=== PATIENT | male | born 1980 | race Caucasian/White ===

== ENCOUNTER 2016-09-13 19:53 | Inpatient (IN) | payer MEDICARE, OTHER ==
--- NOTE | ~2016-09-13 | DS ---
Unit #: [id number] #: [id number] Patient: GENIE MONTERROSO [id number] [place] [id number] [facility]. [place], [place] [address] [id number] I MR#: [id number] NAME: GENIE MONTERROSO ROOM: 326 Age: 36 Sex: M Admission Date: 09/13/2016 : 1980 Discharge Date: 09/27/2016 Attending Physician: Julio Thomson M.D. Referring Physician: Danielito Nelson M.D. Primary Care Physician: Danielito Nelson M.D. DISCHARGE SUMMARY DISCHARGE DIAGNOSES 1. Acute hypoxic respiratory failure. 2. Methicillin-sensitive Staphylococcus aureus pneumonia. 3. History of pulmonary aspergillosis. 4. HIV. 5. Acute systolic heart failure. 6. Deep venous thrombosis. 7. Severe protein calorie malnutrition. 8. Rhabdomyolysis. HOSPITAL COURSE The patient is a 36-year-old HIV positive male who presented to [facility] emergency department with a complaint of shortness of breath. Apparently, he had been treated for flu several days prior but did not improve. In the emergency department, he was noted to be tachycardic and x-ray showed extensive left-sided pneumonia. Ultimately, the patient's respiratory status declined such that he needed intubation the day following admission. Blood cultures ultimately returned growing Staph aureus resistant only to penicillin. He sputum cultures returned growing the same. Chest x-ray was noted to have infectious or inflammatory cavitary abnormality in the left upper lobe. CT of the chest was performed and showed a large area of cavitation within the left upper lobe. The notion of repeat aspergillus was entertained briefly, however, aspergillus antigen was negative and it was felt that this was a cavitary pneumonia caused by the patient's Staph. The patient underwent 2D echo which revealed a reduced ejection fraction at 40% to 45%. The patient was started on beta anatoliy and lisinopril. The patient underwent bilateral upper extremity venous ultrasound secondary to swelling, right greater than left, and was noted to have an occlusive clot in the right internal jugular vein and nonocclusive clot in the right subclavian vein. The patient was started on Arixtra for management while in the hospital but has been switched to Eliquis as an outpatient and will likely need 3 months of therapy. The patient was ultimately able to be removed from the ventilator on 09/23/2016. He has improved rapidly since then. He is currently breathing without difficulty on room air. Given this the patient is being discharged home to complete two more weeks of IV antibiotics for his MSSA pneumonia. DISCHARGE MEDICATIONS 1. Intelence 200 mg p.o. b.i.d. Unit #: [id number] #: [id number] Patient: GENIE MONTERROSO 2. Celsentri 300 mg p.o. b.i.d. 3. Isentress 400 mg p.o. b.i.d. 4. Coreg 6.25 mg p.o. b.i.d. 5. Zestril 10 mg p.o. h.s. 6. Zithromax 1200 mg p.o. daily. 7. Florastor 250 mg p.o. b.i.d. 8. Bactrim DS one p.o. daily. 9. Rocephin 2 grams IV daily times 2 more weeks. 10. Eliquis 10 mg p.o. b.i.d. times 7 days; then, 5 mg p.o. b.i.d. 11. Ventolin two puffs q.4 h. p.r.n. FOLLOWUP 1. The patient should follow up with Dr. Noe in one week. 2. He should follow up at the [facility] at the soonest available appointment. Dictated by... Grace Harris/malka TD: 09/27/2016 20:42 JOB #: [id number] DISCHARGE SUMMARY Page 1 of 1 X Julio Thomson MD X DISCHARGE SUMMARY
--- NOTE | ~2016-09-13 | CR72 ---
[facility] A Service of [facility] RADIOLOGY TEXT RESULTS PATIENT: GENIE MONTREROSO [facility] : [birth year] UNIT #: [id number] AGE: [address]: Nam Chand MD SEX: M ORDER DR: [id number] [facility] [address] [facility]. [place], [place] [address] [id number] I MR#: [id number] Acc #: [id number] NAME: GENIE MONTERROSO : 1980 SEX: M STUDY DATE/TIME: 09/16/2016 3:47 UNIT: [facility] ROOM: [facility] STUDY DESCRIPTION: CR Chest Single View Portable Attending Physician: Nam Chand M.D. Referring Physician: Danielito Nelson M.D. Ordering Physician: Shaun Noe M.D. Primary Care Physician: Danielito Nelson M.D. MEDICAL IMAGING REPORT This report is preliminary unless electronic signature is present EXAM Frontal chest, 09/16/2016 INDICATIONS Respiratory failure, respiratory distress in a 36-year-old male, worsening symptoms today. TECHNIQUE Frontal chest compared 09/15/2016 FINDINGS Preexisting tubes and lines in satisfactory position to the extent visualized. Cardiac silhouette is stable. Moderately extensive interstitial and alveolar infiltrates bilaterally with the left-sided predominance are not significantly changed. Left lung base not fully included in the field of view. No pneumothorax. IMPRESSION No significant change from 09/15/2016. Dictated by... Silvio Werner M.D. THIS IS AN ELECTRONICALLY VERIFIED REPORT Silvio Werner M.D. at 09/16/2016 10:12 PM Rosa TD: 09/16/2016 15:19 JOB #: [id number] MEDICAL IMAGING REPORT [facility] A Service of [facility] RADIOLOGY TEXT RESULTS PATIENT: GENIE MONTERROSO [facility]: [facility] : 78 UNIT #: [id number] AGE: [address]: Nam Chand MD SEX: M ORDER DR: Page 1 of 1 COPY
--- NOTE | ~2016-09-13 | CR72 ---
[facility] A Service of [facility] RADIOLOGY TEXT RESULTS PATIENT: GENIE MONTERROSO LOCATION: [facility] : [birth year] UNIT #: [id number] AGE: [address]: Julio Thomson MD SEX: M ORDER DR: [id number] [facility]. [place], [place] [address] [id number] I MR#: [id number] Acc #: [id number] NAME: GENIE MONTERROSO : 1980 SEX: M STUDY DATE/TIME: 09/18/2016 6:08 UNIT: [facility] ROOM: [facility] STUDY DESCRIPTION: CR Chest Single View Portable Attending Physician: Julio Thomson M.D. Referring Physician: Danielito Nelson M.D. Ordering Physician: Shaun Noe M.D. Primary Care Physician: Danielito Nelson M.D. MEDICAL IMAGING REPORT This report is preliminary unless electronic signature is present EXAM AP radiograph chest, 09/18/2016. HISTORY Followup respiratory FX/ARDS. TECHNIQUE AP radiograph of the chest is presented. COMPARISON STUDIES 09/17/2016, 0441 hours. FINDINGS Endotracheal tube unchanged terminating approximately 5.4 cm above the corie. Enteric tube extends below diaphragm and off field of radiograph. Left internal jugular approach central venous catheter terminates in superior vena cava. Heart normal in size. Mediastinal contours within normal limits. The lungs are well inflated. Extensive bilateral airspace disease. Underlying pulmonary vascular congestion has decreased. Pulmonary vasculature appears within normal limits at this time. Decreased interstitial densities in the bilateral lungs. The distribution of bilateral airspace densities is unchanged. The cavitary lesion in the left upper lobe with internal densities is stable. Appearance of the lungs likely reflects combination of multifocal bilateral pneumonia and ARDS. Some improvement in interstitial component of process. No pneumothorax. No sizeable pleural effusion. Dictated by... Jan Aragon M.D. [facility] A Service [facility] RADIOLOGY TEXT RESULTS PATIENT: GENIE MONTERROSO LOCATION: [facility] : [birth year] UNIT #: [id number] AGE: [address]: Julio Thomson MD SEX: M ORDER DR: THIS IS AN ELECTRONICALLY VERIFIED REPORT Jan Aragon M.D. at 09/19/2016 6:04 PM Tierney TD: 09/18/2016 11:53 JOB #: [id number] MEDICAL IMAGING REPORT Page 1 of 1 COPY
--- NOTE | ~2016-09-13 | EKG ---
PATIENT: GENIE MONTERROSO UNIT #: [id number] Ventricular Rate: 149 BPM Atrial Rate: 149 BPM P-R Interval: 124 ms QRS Duration: 90 ms Q-T Interval: 264 ms QTC Calculation(Bezet): 415 ms P Trenton: 78 degrees Calculated R [place]on: 85 degrees Calculated T [place]on: 83 degrees Diagnosis Line: Sinus tachycardia Diagnosis Line: Otherwise normal ECG Diagnosis Line: When compared with ECG of 13-SEP-2016 17:30, Diagnosis Line: (unconfirmed) Diagnosis Line: No significant change was found Diagnosis Line: Confirmed by KIMBERLYN MOSER MD ([id number]) on 09/18/2016 Diagnosis Line: 10:36:06 PM INTERPRETING MD: EHSAN CUEVAS
--- NOTE | ~2016-09-13 | FU ---
[facility] Nutrition Therapy DATE: 09/18/16 Patient: GENIE MONTERROSO Physician: STEPHANIE Address: [address] [facility] Room/Bed: [address], Zip: [place] [id number] Admit Date: 09/13/16 Date of : [birth year] Height: 5 7 Weight: 168 76.4 NUTRITION MONITORING/FOLLOW-UP: Reason: Nutrition follow up Anthropometrics: Ht: 67" wt: 64.5 kg BMI: 22.3 Wt 09/18: 76.4 kg Labs: Gluc 170 BUN 56 Ca++ 8.0 Alb 1.8 Meds: Propofol at 12.4 mL/hr, versed, fentanyl, reglan, MgSO4, KCl, furosemide, solu-medrol, D5%, levophed, protonix, zofran, NaCl I&O's: 3596/5550, last BM 09/13 Skin: Reviewed, no changes noted. Edema: 1+ BL hands/ feet Estimated Nutrition Needs: 7763-3466 kcals (28-32 kcals/kg) 77-97 grams protein (1.2-1.5 grams/kg) Assessment: Chart reviewed, events noted. Pt remains intubated and sedated in the ICU. Propofol is providing an additional 327 kcals from lipids at this time. wrote to wean propofol per RN report. Pt is receiving enteral nutrition with Jevity 1.5 @ 20 mL/hr without Prostat. Per RN report, Prostat has not been on the MAR since she started caring for the pt. Pt had residuals of ~110 cc last night, and ~200cc this AM. Reglan was started yesterday. Please note, the pt has not had a noted BM since 09/13 (x 5 days). Per pump history, the pt has received ~53% goal volume of enteral nutrition over the past 24 hrs (based on previous recommended goal rate). Dx: Inadequate protein-energy intake RT clinical condition AEB intubated, ~53% goal volume of enteral nutrition received over the past 24 hrs- ACTIVE Intervention: 1. Enteral nutrition Monitoring, Evaluation and Goals: NOT BEING MET 1. Enteral nutrition; provide >80% goal volume x 24 hrs 2. Labs; WNL 3. Weight; prevent unintentional weight loss, promote gradual weight gain towards IBW 4. Skin; prevent breakdown [facility] Nutrition Therapy DATE: 09/18/16 Patient: GENIE MONTERROSO Physician: STEPHANIE Address: [address] [facility] Room/Bed: [address], Zip: [place] [address] Admit Date: 09/13/16 Date of : [birth year] Height: 5 7 Weight: 168 76.4 Recommendations: 1. While the pt remains on propofol @ 12.4 mL/hr, increase Jevity 1.5 by 10 mL q 6 hrs as tolerated to goal of 40 mL/hr + 30 mL Prostat BID to provide: 1967 kcals/ 91 grams protein/ 730 mL free H20 2. When the pt is no longer receiving propofol, increase Jevity 1.5 to 55 mL/hr and discontinue Prostat. This will provide: 1980 kcals/ 84 grams protein/ 1003 mL free H20 3. Optimize the pt's bowel regimen, as he has not had a noted BM since 09/13. Status: Pt is at moderate-severe nutritional risk. RD will continue to follow. Respectfully, MANUEL LAWRENCE RD, LD Food and Nutritional Services [facility] cc: client file
--- NOTE | ~2016-09-13 | CR72 ---
[facility] A Service of [facility] RADIOLOGY TEXT RESULTS PATIENT: GENIE MONTERROSO LOCATION: [facility] : 76 UNIT #: [id number] AGE: [address]: Nam Chand MD SEX: M ORDER DR: [id number] [facility] [address]. [place], [place] [address] [id number] I MR#: [id number] Acc #: [id number] NAME: GENIE MONTERROSO : 1980 SEX: M STUDY DATE/TIME: 09/13/2016 18:29 UNIT: [facility] ROOM: [facility] STUDY DESCRIPTION: CR Chest Single View Portable Attending Physician: Yajaira Cannon M.D. Referring Physician: Danielito Nelson M.D. Ordering Physician: Lori Mays M.D. Primary Care Physician: Danielito Nelson M.D. MEDICAL IMAGING REPORT This report is preliminary unless electronic signature is present EXAM AP portable chest, 09/13/2016 COMPARISON 12/02/2015 HISTORY SUPPLIED Shortness of breath and chest pressure for 4 days. FINDINGS An AP portable view of the chest is obtained. Heart size is normal. Patient has developed diffuse severe infiltrates throughout the left lung and some patchy infiltrate in the right lung base. No pleural fluid is identified. The infiltrates appear somewhat nodular in character. CONCLUSION Interim development of extensive infiltrate in the left lung and some nodular-appearing infiltrate in the right base. Findings are consistent with pneumonia. Dictated by... Jan Blake M.D. THIS IS AN ELECTRONICALLY VERIFIED REPORT Jan Blake M.D. at 09/14/2016 10:35 AM LUIGI/april TD: 09/14/2016 01:57 JOB #: [id number] MEDICAL IMAGING REPORT [facility] A Service [facility] RADIOLOGY TEXT RESULTS PATIENT: GENIE MONTERROSO LOCATION: [facility] : 76 UNIT #: [id number] AGE: [address]: Nam Chand MD SEX: M ORDER DR: Page 1 of 1 COPY
--- NOTE | ~2016-09-13 | CO ---
Unit #: [id number] #: [id number] Patient: LOWELL MONTERROSO [address] [place], [place] [address] [id number] I MR#: [id number] NAME: LOWELL MONTERROSO ROOM: [facility] Age: 36 Sex: M Admission Date: 09/13/2016 : 1980 Attending Physician: Julio Thomson M.D. Primary Care Physician: Danielito Nelson M.D. Consultation Date: 09/15/2016 CONSULTATION REPORT REASON FOR CONSULTATION Thrombocytopenia. HISTORY OF PRESENT ILLNESS Mr. Lowell Monterroso is a 36-year-old with a history of AIDS, admitted with sepsis and acute renal failure. Blood cultures are growing Staph aureus with sensitivities pending and he is currently on broad-spectrum antibiotics. Historical information was obtained from the chart as the patient is currently intubated on the vent and only a friend is present at the bedside. From his CD4 count, it appears that he has not been taking his antiretrovirals. He was admitted in the hospital with cough, shortness of breathing, arthralgias and myalgias and was initially treated with Tamiflu for influenza. In the emergency room, he was tachycardic with extensive left-sided pneumonia. He is currently on broad-spectrum antibiotics. CBC at the time of admission showed a white count of 2500, hemoglobin of 14.7, platelet count of 45,000, dropping to 30,000 leading to this consultation. The pro time is 10.5, INR is 1. PTT is 37.9 without any evidence of bleeding. PAST MEDICAL HISTORY Burkitt lymphoma, treated in 2011. HIV diagnosed in 2004. Current CD4 count is 27. History of Aspergillus pneumonia. ALLERGIES Listed as penicillin. FAMILY HISTORY Apparently has Crohn disease. SOCIAL HISTORY Not available. Quit smoking apparently a year ago according to his friend at bedside. His partner has been incarcerated. REVIEW OF SYSTEMS Not obtainable. PHYSICAL EXAMINATION GENERAL: He is a middle-aged man, intubated on a ventilator. VITAL SIGNS: Temperature 99.7, pulse is 108, respiratory rate is 28, blood pressure 105/61, O2 saturation 94% on ventilator. HEENT: Shows pupils are equal and reactive well. Mild pallor. No icterus. Mucous membranes are moist. ET tube is noted. NECK: Without adenopathy, JVD, or thyromegaly. CARDIOVASCULAR: First and second heart sounds are heard and regular. Unit #: [id number] #: [id number] Patient: LOWELL MONTERROSO LUNGS: Bilaterally equal air entry. Coarse breath sounds. ABDOMEN: Soft and nontender. Liver and spleen are not palpable. EXTREMITIES: Warm with good pulses. No edema, cyanosis or clubbing. NEUROLOGIC: He is intubated and sedated. SKIN: Negative. ALLERGIC/LYMPHATIC: Negative. DIAGNOSTIC STUDIES LABORATORY RESULTS: CBC with a white count of 2.5, hemoglobin 14.7, platelet count is 30,000. Pro time as mentioned. Complete metabolic panel shows a BUN of 21, creatinine is 0.7, AST is 134, ALT is 98, alkaline phosphatase 90, bilirubin is 2.7, albumin 2.2. ASSESSMENT AND PLAN Mr. Lowell Monterroso is a 36-year-old with a history of AIDS, admitted with pneumonia, sepsis, acute respiratory failure and severe thrombocytopenia. Blood cultures grew Staph aureus, possibly methicillin-resistant Staph aureus and sensitivities are not available at this point and he is on broad-spectrum antibiotics to cover this. Thrombocytopenia is most probably related to his sepsis. Anemia has been based on thrombocytopenia related to his prior treatment of Burkitt lymphoma in 2011. I discussed with his friend who is at bedside. RECOMMENDATIONS 1. CBC with transfusion support as necessary. 2. May need to repeat his coagulation studies for evidence of DIC. Thank you for allowing me to participate in his care. Dictated by... Mahad Mancilla M.D. MALIKA/oneil TD: 09/16/2016 23:20 JOB #: [id number] CONSULTATION REPORT Page 1 of 1 X Mahad Mancilla MD X CONSULTATION REPORT
--- NOTE | ~2016-09-13 | CR7 ---
[facility] A Service of [facility] RADIOLOGY TEXT RESULTS PATIENT: GENIE MONTERROSO [address]ATION: [address] : [birth year] UNIT #: [id number] AGE: [address]: Nam Chand MD SEX: M ORDER DR: [id number] [facility] [address] [place], [place] [address] [id number] I MR#: [id number] Acc #: [id number] NAME: GENIE MONTERROSO : 1980 SEX: M STUDY DATE/TIME: 09/14/2016 11:41 UNIT: [facility] ROOM: [facility] STUDY DESCRIPTION: CR Abdomen Single AP View Attending Physician: Nam Chand M.D. Referring Physician: Danielito Nelson M.D. Ordering Physician: Nam Chand M.D. Primary Care Physician: Danielito Nelson M.D. MEDICAL IMAGING REPORT This report is preliminary unless electronic signature is present EXAM KUB HISTORY Dobbhoff tube placement. TECHNIQUE Single view of the abdomen was obtained. FINDINGS The Dobbhoff tube is seen with the tip in good position near the pylorus, either the duodenal bulb or distal stomach. The bowel gas pattern is normal. STAT * RESULT Dictated by... Esteban Moncada M.D. THIS IS AN ELECTRONICALLY VERIFIED REPORT Esteban Moncada M.D. at 09/14/2016 3:43 PM PARISH/doretha TD: 09/14/2016 12:04 JOB #: [id number] MEDICAL IMAGING REPORT Page 1 of 1 COPY
--- NOTE | ~2016-09-13 | A ---
[facility] Nutrition Therapy DATE: 09/14/16 Patient: GENIE MONTERROSO Physician: STEPHANIE Address: [address] [place] [address] Room/Bed: [address], Zip: [place] [address] Admit Date: 09/13/16 Date of : [birth year] Height: 5 7 Weight: 142 64.5 NUTRITIONAL ASSESSMENT: REASON: Enteral nutrition recommendations 36 yo male admitted for PNA, HIV PMH: HIV, Burkitts lymphoma, s/p left upper lobectomy Anthropometrics: Ht: 67" wt: 64.5 kg BMI: 22.3 IBW: 67.3 kg, 96% IBW Labs: Na+ 130 K+ 3.2 Cl- 98 Gluc 156 Ca++ 7.4 Alb 2.2 AST 174 ALT 98 Meds: Propofol @ 36 ml/hr, D5%, zofran, levaquin (IV), pepcid I/O & Bowel function: 2957/700, last BM 09/13 Skin Integrity: Old surgical scar left posterior chest Preventative Mepiplex to coccyx Edema: None noted Estimated Nutrition Needs: 4960-1774 kcals (28-32 kcals/kg) 77-97 grams protein (1.2-1.5 grams/kg) Assessment: Chart reviewed, events noted. Pt is being intubated in the ICU at this time. Pt is sedated with propofol, which is providing an additional 950 kcals from lipids at this time. Pt has a h/o HIV and Burkitt's lymphoma. RN requested enteral nutrition recommendations now that the pt is being intubated, and DHT has been placed. Pt was previously on clear liquid diet. Per previous weights in [employer], the pt's weight have remained stable since September 2015. Please see recommendations below. Dx: Inadequate protein-energy intake RT clinical condition AEB intubated, NPO status. Intervention: 1. Enteral nutrition Monitoring, Evaluation and Goals: 1. Enteral nutrition; provide >80% goal volume x 24 hrs 2. Labs; WNL: electrolytes, glucose, AST, ALT 3. Weight; prevent unintentional weight loss, promote gradual weight gain towards IBW 4. Skin; prevent breakdown [facility] Nutrition Therapy DATE: 09/14/16 Patient: GENIE MONTERROSO Physician: STEPHANIE Address: [address] Room/Bed: [address], Zip: [place] [address] Admit Date: 09/13/16 Date of : [birth year] Height: 5 7 Weight: 142 64.5 Recommendations: 1. Once medically feasible, would initiate enteral nutrition with Jevity 1.5 @ 20 mL/hr. Increase by 10 mL q 6 hrs as tolerated to indicated goal rate below: WHILE THE PT IS RECEIVING PROPOFOL: -Increase Jevity 1.5 to 25 mL/hr + 30 mL Prostat TID to provide: 2150 kcals/ 83 grams protein/ 456 mL free H20 WHEN THE PT IS NO LONGER RECEIVING PROPOFOL: -Discontinue Prostat -Increase Jevity 1.5 to 55 mL/hr to provide: 1980 kcals/ 84 grams protein/ 1003 mL free H20 2. If the pt is extubated, recommend diet advancement per [employer] recommendations without any further dietary restrictions. Pt is at moderate-severe nutritional risk. Respectfully, MANUEL LAWRENCE RD, LD Food and Nutritional Services [facility] cc: client file
--- NOTE | ~2016-09-13 | HP ---
Unit #: [id number] #: [id number] Patient: GENIE MONTERROSO [id number] [address] [place], [place] [address] [id number] E MR#: [id number] NAME: GENIE MONTERROSO ROOM: Age: 36 Sex: M Admission Date: 09/13/2016 : 1980 Attending Physician: Lori Mays M.D. Referring Physician: Danielito Nelson M.D. Primary Care Physician: Danielito Nelson M.D. HISTORY AND PHYSICAL CHIEF COMPLAINT HIV, pneumonia, rhabdomyolysis. HISTORY OF PRESENT ILLNESS This 36-year-old male with HIV and previous treatment for Burkitt's lymphoma is admitted for pneumonia. The patient states that he was well until the past several days when he developed a deep cough productive of green sputum with increasing shortness of breath and myalgias. He was diagnosed with influenza and started on Tamiflu three days ago. He has become more ill despite Tamiflu. He presented to this emergency department where he is quite tachycardic with a heart rate of 158. His chest x-ray shows extensive left-sided pneumonia. In the ER, he was bolused with two liters of saline, given Rocephin, Zithromax, morphine, and Zofran, and currently is being IV Bactrim. He was last admitted to this facility September 2015 for cavitary pneumonia requiring left lobectomy with positive cultures for aspergillus. He states that he has not been hospitalized since that time nor recently taken any antibiotics. Labs are also notable for acute hypoxic respiratory failure, elevated LFTs, and rhabdomyolysis with a CPK of 19,000. PAST MEDICAL HISTORY 1. Human immunodeficiency virus diagnosed in 2004. Last CD4 count last year was 306 at this facility. Viral load 18,000. The patient currently is receiving HAART therapy through the [facility]. 2. 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 Patient ultimately required left upper lobectomy by Dr. Lockhart. 3. History of Burkitt's lymphoma with previous chemotherapy in 2011. ALLERGIES PENICILLIN. HOME MEDICATIONS 1. Selzentry 600 mg b.i.d. 2. Intelence 200 mg b.i.d. 3. Isentress 400 mg b.i.d. 4. Symbicort. FAMILY HISTORY Crohn disease. SOCIAL HISTORY The patient lives with his partner. He stopped smoking last year. He Unit #: [id number] #: [id number] Patient: GENIE MONTERROSO does not drink alcohol. REVIEW OF SYSTEMS Notable for shortness of breath, myalgias, productive cough, HIV, left upper lobe lobectomy, and Burkitt's lymphoma. All other systems were reviewed and are otherwise negative. PHYSICAL EXAMINATION GENERAL: A pleasant, ill-appearing, 36-year-old male. VITAL SIGNS: Temperature 97.8 and pulse 158, now down to 136. Initial O2 saturation was 94% on room air; however, when I went to see the patient, his O2 saturation was 86% on 6 liters of oxygen. Respirations 24 and blood pressure 127/70. HEENT: Eyes PERRLA. Extraocular muscles are intact. Pharynx is benign. NECK: Supple without adenopathy or thyromegaly. CHEST: Rhonchi throughout, particularly on the left. CARDIAC: Tachy S1 and S2, without murmur. ABDOMEN: Bowel sounds are present. No hepatosplenomegaly, tenderness, or masses. EXTREMITIES: Without clubbing, cyanosis, or edema. Pedal pulses are present. No splinter hemorrhages noted over the fingernail beds. LYMPHATICS: No cervical, supraclavicular, or axillary lymphadenopathy. NEUROLOGIC: Patient is awake, alert, and oriented. Cranial nerves are intact. Equal strength throughout. DIAGNOSTIC STUDIES ADMISSION LABORATORY: Hematocrit is 41.8, white blood count is 2.5, and platelet count is 45,000. Ten bands noted. PTT is 35.5 and INR is normal. SMA-12 with glucose of 180, BUN 32, sodium 126, potassium 3.4, chloride 86, albumin 3.3, bilirubin 3.3, AST 360, ALT 144, and alkaline phosphatase 99. LDH 979. CPK is 19,500. Lactic acid 2.2. ABG with pH of 7.47, PCO2 of 35, PO2 of 72, and O2 saturation is 94% on 6 liters of oxygen. IMAGING: Chest x-ray shows extensive left-sided infiltrate and probably infiltrate at the right base consistent with pneumonia. CARDIOLOGY: EKG shows sinus tachycardia, rate 152, and nonspecific ST wave abnormalities. ASSESSMENT 1. Pneumonia in this patient with human immunodeficiency virus. This is associated with acute hypoxic respiratory failure. He was recently diagnosed with influenza. 2. Rhabdomyolysis. 3. Hypovolemic hyponatremia. 4. Human immunodeficiency virus with last CD4 count of 306 last year and elevated viral load on highly active antiretroviral therapy. 5. Status post left lobectomy for aspergillus. 6. Sinus tachycardia. 7. Increased liver function tests. 8. Previous treatment for Burkitt's lymphoma. 9. Neutropenia and thrombocytopenia. PLANS 1. IV vancomycin, IV Bactrim, and IV Levaquin pending cultures and continue Tamiflu. 2. Aggressive IV fluids. Unit #: [id number] #: [id number] Patient: GENIE MONTERROSO 3. Supplemental oxygen and bronchodilators. 4. Infectious Disease and Pulmonary consultations. 5. Blood and sputum cultures. 6. DVT and gastritis prophylaxis. 7. Florastor. 8. CT scan of the abdomen. Critical care time spent on this patient was 40 minutes. Dictated by Grace Silverio/funmilayo TD: 09/13/2016 21:33 JOB #: [id number] HISTORY AND PHYSICAL Page 1 of 1 X Yajaira Cannon MD X HISTORY AND PHYSICAL
--- NOTE | ~2016-09-13 | CR72 ---
[facility] A Service of [facility] RADIOLOGY TEXT RESULTS PATIENT: GENIE MONTERROSO LOCATION: A 326-01 : [birth year] UNIT #: [id number] AGE: [address]: Julio Thomson MD SEX: M ORDER DR: [id number] [facility] [address] [place], [place] [address] [id number] I MR#: [id number] Acc #: [id number] NAME: GENIE MONTERROSO : 1980 SEX: M STUDY DATE/TIME: 09/23/2016 5:12 UNIT: [facility] ROOM: [facility] STUDY DESCRIPTION: CR Chest Single View Portable Attending Physician: Julio Thomson M.D. Referring Physician: Danielito Nelson M.D. Ordering Physician: Shaun Noe M.D. Primary Care Physician: Danielito Nelson M.D. MEDICAL IMAGING REPORT This report is preliminary unless electronic signature is present EXAM Portable chest, 09/23/2016 HISTORY Pneumonia and respiratory failure for 8 days. COMPARISON Chest, 09/22/2016 FINDINGS Frontal chest demonstrates removal of the endotracheal tube and enteric feeding tube. Left IJ central venous catheter is stable. No visible pneumothorax. Redemonstration of cavitary mass in the upper left lung field. Right lung clear. Heart size and mediastinum are stable. IMPRESSION 1. Removal of endotracheal tube and enteric feeding tube. Left IJ central venous catheter stable. No visible pneumothorax. 2. Stable cavitary mass in the left upper lung field. Dictated by... Daniel Gutierrez M.D. THIS IS AN ELECTRONICALLY VERIFIED REPORT Daniel Gutierrez M.D. at 09/23/2016 11:29 PM Sierra TD: 09/23/2016 16:01 JOB #: [id number] MEDICAL IMAGING REPORT Page 1 of 1 COPY
--- NOTE | ~2016-09-13 | XA166 ---
[facility] A Service of [facility] RADIOLOGY TEXT RESULTS PATIENT: GENIE MONTERROSO LOCATION: C3A 326- : [birth year] UNIT #: [id number] AGE: [address]: Julio Thomson MD SEX: M ORDER DR: [id number] [place] [id number] [facility] [place] [facility]. [place], [place] [address] [id number] I MR#: [id number] Acc #: [id number] NAME: GENIE MONTERROSO : 1980 SEX: M STUDY DATE/TIME: 09/27/2016 13:53 UNIT: C3A PCU ROOM: [facility] STUDY DESCRIPTION: XA PICC Line Placement WO Port Attending Physician: Julio Thomson M.D. Referring Physician: Danielito Nelson M.D. Ordering Physician: Physician Non-Staff Primary Care Physician: Danielito Nelson M.D. MEDICAL IMAGING REPORT This report is preliminary unless electronic signature is present EXAM PICC line insertion 09/27/2016 HISTORY IV access PRE-PROCEDURE The procedure was explained to the patient and/or patient pharmacy sales representative including risks, benefits, potential complications and potential for alternative forms of treatment. Informed consent was obtained, and prior to initiating the procedure a formal timeout procedure was performed. PROCEDURE Using full standard sterile barrier technique, including caps, gowns, gloves, masks, as well as sterile skin preparation and standard sterile draping, the left arm was prepped and draped in the usual fashion, and real-time sterile ultrasound guidance was used to localize an arm vein and to confirm vessel patency. A hard copy ultrasound image was recorded. After local anesthesia with 1% Xylocaine, the vein was punctured using real-time sterile ultrasound guidance, and an 0.018 guidewire was advanced into the superior vena cava, using fluoroscopic guidance. A 4-Paraguayan 40 cm single-lumen PICC was then measured and deployed with the tip positioned in the superior vena cava. The position of the line was documented with a radiographic image. The line was secured in place with an adhesive dressing and an antibiotic patch was applied. The left basilic vein was utilized. Total fluoro time was 0.1 minutes. Reference air kerma 1 mGy. IMPRESSION Successful placement of a 4-Paraguayan single-lumen PowerPICC via the left arm under ultrasound and fluoroscopic guidance. The tip of the PICC is in STS. [facility] A Service of [facility] RADIOLOGY TEXT RESULTS PATIENT: GENIE MONTERROSO LOCATION: A 326-01 : [birth year] UNIT #: [id number] AGE: [address]: Julio Thomson MD SEX: M ORDER DR: good position in the superior vena cava. Dictated by... Liam Fang M.D. THIS IS AN ELECTRONICALLY VERIFIED REPORT Liam Fang M.D. at 09/28/2016 8:59 AM Sher TD: 09/27/2016 17:25 JOB #: [id number] MEDICAL IMAGING REPORT Page 1 of 1 COPY
--- NOTE | ~2016-09-13 | CR72 ---
[facility] A Service of [facility] RADIOLOGY TEXT RESULTS PATIENT: GENIE MONTERROSO LOCATION: A 326-01 : [birth year] UNIT #: [id number] AGE: [address]: Julio Thomson MD SEX: M ORDER DR: [id number] [facility] [address]. [place], [place] [address] [id number] I MR#: [id number] Acc #: [id number] NAME: GENIE MONTERROSO : 1980 SEX: M STUDY DATE/TIME: 09/22/2016 4:58 UNIT: [facility] ROOM: [facility] STUDY DESCRIPTION: CR Chest Single View Portable Attending Physician: Julio Thomson M.D. Referring Physician: Danielito Nelson M.D. Ordering Physician: Shaun oNe M.D. Primary Care Physician: Danielito Nelson M.D. MEDICAL IMAGING REPORT This report is preliminary unless electronic signature is present EXAM Frontal chest, 09/22/2016 INDICATION Acute respiratory failure. Left-sided pneumonia. Lymphoma. TECHNIQUE Frontal chest was performed. COMPARISON 09/21/2016 FINDINGS ET tube tip in good position above the corie. Left-sided central line unchanged. There is an enteric tube present and the tip is below the diaphragm but not in the field of view. Cardiac silhouette stable. Vascularity unremarkable. Redemonstration of a cavitary mass in the upper lung zone on the left. This is not significantly changed. Faint interstitial opacities in the right lower lung zone are stable. There is no new effusion or pneumothorax. Previously-described additional potential cavitary lesion in the ysc-ud-fzyev lung zone on the left not clearly demonstrated on this study. IMPRESSION 1. Tubes and lines in satisfactory position. No pneumothorax. 2. Cavitary mass in the left lung not significantly changed. Opacities in the right lung not significantly changed. Dictated by... Silvio Werner M.D. THIS IS AN ELECTRONICALLY VERIFIED REPORT Silvio Werner M.D. at 09/25/2016 9:13 AM STS. [facility] A Service of [facility] RADIOLOGY TEXT RESULTS PATIENT: GENIE MONTERROSO LOCATION: [facility] 326-01 : [birth year] UNIT #: [id number] AGE: [address]: Juloi Thomson MD SEX: M ORDER DR: GAYATHRI/yolande TD: 09/22/2016 09:11 JOB #: [id number] MEDICAL IMAGING REPORT Page 1 of 1 COPY
--- NOTE | ~2016-09-13 | CR72 ---
[facility] A Service [facility] RADIOLOGY TEXT RESULTS PATIENT: GENIE MONTERROSO LOCATION: [address]21 : [birth year] UNIT #: [id number] AGE: [address]: Julio Thomson MD SEX: M ORDER DR: [id number] [place] [id number] [facility] [place] [facility]. [place], [place] [address] [id number] I MR#: [id number] Acc #: [id number] NAME: GENIE MONTERROSO : 1980 SEX: M STUDY DATE/TIME: 09/19/2016 9:09 UNIT: [facility] ROOM: [facility] STUDY DESCRIPTION: CR Chest Single View Portable Attending Physician: Julio Thomson M.D. Referring Physician: Danielito Nelson M.D. Ordering Physician: Shaun Noe M.D. Primary Care Physician: Danielito Nelson M.D. MEDICAL IMAGING REPORT This report is preliminary unless electronic signature is present EXAM Portable chest INDICATIONS Endotracheal tube placement respiratory failure and pneumonia. Reposition of endotracheal tube 09/19. COMPARISON Earlier the same day. FINDINGS A portable view of the chest is obtained. The endotracheal tube tip is 3 cm above the corie. This central venous catheter tip is in the superior vena cava and the Dobbhoff tube tip is at least in the stomach. Faint right lower lobe infiltrate and patchy cavitary left upper lobe infiltrate is present. It is unchanged from the prior study. IMPRESSION There is no significant change from the earlier exam from 5 hours ago. Apparently the endotracheal tube has been repositioned and it is in good position with its tip 3 cm above the corie. Dictated by... Joaquim Thurman M.D. THIS IS AN ELECTRONICALLY VERIFIED REPORT Joaquim Thurman M.D. at 09/19/2016 1:29 PM SYLVAIN/rnr TD: 09/19/2016 12:33 JOB #: [id number] MEDICAL IMAGING REPORT [facility] A Service [facility] RADIOLOGY TEXT RESULTS PATIENT: GENIE MONTERROSO LOCATION: [facility] CICCU3-21 : [birth year] UNIT #: [id number] AGE: [address]: Julio Thomson MD SEX: M ORDER DR: Page 1 of 1 COPY
--- NOTE | ~2016-09-13 | CT4 ---
[facility] A Service of [facility] RADIOLOGY TEXT RESULTS PATIENT: GENIE MONTERROSO LOCATION: [address]21 : [birth year] UNIT #: [id number] AGE: [address]: Nam Chand MD SEX: M ORDER DR: [id number] [facility] [address] [place], [place] [address] [id number] I MR#: [id number] Acc #: [id number] NAME: GENIE MONTERROSO : 1980 SEX: M STUDY DATE/TIME: 09/14/2016 4:24 UNIT: [facility] ROOM: [facility] STUDY DESCRIPTION: CT Abd and Pelv Wo Cont Attending Physician: Nam Chand M.D. Referring Physician: Danielito Nelson M.D. Ordering Physician: Yajaira Cannon M.D. Primary Care Physician: Danielito Nelson M.D. MEDICAL IMAGING REPORT This report is preliminary unless electronic signature is present EXAM CT abdomen and pelvis, noncontrast, 09/14/2016 HISTORY 36-year-old male with history of HIV and Burkitt lymphoma admitted to the hospital complaining of shortness of air and hemoptysis. Upper abdominal pain. 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 TECHNIQUE CT examination of the abdomen and pelvis was performed without oral or IV contrast. This CT exam was performed with one or more of the following radiation dose reduction techniques: automatic exposure control, adjustment of mA and/or kV according to patient size, and iterative reconstruction. FINDINGS LOWER CHEST: Dense airspace consolidation throughout the visualized left lower lung. Multinodular airspace opacities scattered throughout the remaining portions of both lower lungs. Given the history, atypical infection should be excluded. ABDOMEN: Liver, pancreas and spleen are normal in size and appearance without contrast. Contracted gallbladder. No bile duct dilatation. Tiny nonobstructing calculus in the right mid kidney. Both kidneys are otherwise negative. No mass or adenopathy is seen within the abdomen, retroperitoneum or pelvis. Small bowel and colon are normal in caliber and appearance, as imaged. The appendix is normal. PELVIS: Bladder, prostate and rectum are within normal limits. IMPRESSION [facility]. [facility] A Service of [facility] RADIOLOGY TEXT RESULTS PATIENT: GENIE MONTERROSO LOCATION: CICCU3 CICCU3-21 : [birth year] UNIT #: [id number] AGE: [address]: Nam Chand MD SEX: M ORDER DR: 1. Lung base images showing dense airspace consolidation throughout the left lower lung and patchy, multinodular airspace opacities scattered throughout the remaining portions of the visualized lower lungs. Given the patient's history, atypical infection should be excluded. 2. No acute abnormality within the abdomen or pelvis. 3. Tiny nonobstructing calculus right mid kidney. 4. No adenopathy within the abdomen or pelvis. The spleen is not enlarged. Dictated by... Eugene Osborn M.D. THIS IS AN ELECTRONICALLY VERIFIED REPORT Eugene Osborn M.D. at 09/14/2016 9:54 PM Archana TD: 09/14/2016 08:10 JOB #: [id number] MEDICAL IMAGING REPORT Page 1 of 1 COPY
--- NOTE | ~2016-09-13 | CO ---
Unit #: [id number] #: [id number] Patient: GENIE MONTERROSO [id number] [address] [place], [place] [address] [id number] I MR#: [id number] NAME: GENIE MONTERROSO ROOM: [facility]ICCU3 Age: 36 Sex: M Admission Date: 09/13/2016 : 1980 Attending Physician: Nam Chand M.D. Primary Care Physician: Danielito Nelosn M.D. Consultation Date: 09/14/2016 CONSULTATION REPORT REASON FOR CONSULTATION Antibiotic management in an HIV positive male. 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 The patient reports that he was recently diagnosed with influenza and started on Tamiflu 3 days prior to admission. The patient continued to feel poorly and started to have green sputum production. The patient was admitted and was found to be hypoxic, as well as having an elevated LDH and CK total. The patient's white blood cell counts were also low. Chest x-ray was consistent with infiltrates. The patient was given Levaquin, Tamiflu and Bactrim, and ID was asked to evaluate. PAST MEDICAL HISTORY 1. HIV with unknown current CD4 count; his last was 306, but that was approximately a year ago with viral load of 18,000. The patient says he goes to the [facility] and does receive antiretroviral therapy. 2. Cavitary pneumonia with Aspergillus status post left upper lobectomy. 3. History of Burkitt lymphoma with chemotherapy in 2011. ALLERGIES Penicillin. MEDICATIONS Antiretroviral therapy is on hold. The patient is currently on Bactrim, Tamiflu and Levaquin. For other medications, please refer to the patient's MAR. SOCIAL HISTORY The patient lives with his partner. This is how he reports he contracted the disease, which was in 2004, I believe. He has no current tobacco abuse. He has no drug abuse or alcohol abuse. REVIEW OF SYSTEMS The patient continues to complain of subjective fever, shortness of breath. No chest pain. No muscle pain. No diarrhea. Some occasional nausea and vomiting. No nonhealing wounds and no UTI signs or symptoms. PHYSICAL EXAMINATION VITAL SIGNS: Temperature is 98, pulse 104, blood pressure 135/80, respiratory rate 24. GENERAL: This is a male in no apparent distress who is resting in the bed. He has somewhat labored breathing and was just placed on high-flow Unit #: [id number] #: [id number] Patient: GENIE MONTERROSO oxygen. HEENT: His pupils are equal. NECK: His neck is supple. He does have a hoarse voice. CARDIOVASCULAR: S1, S2. Regular rate and rhythm. PULMONARY: Coarse and scattered rhonchi noted. ABDOMEN: Positive bowel sounds. Soft and nontender. EXTREMITIES: No clubbing, cyanosis or edema. DIAGNOSTIC STUDIES LABS: ABG on 6 liters of oxygen show a PaO2 of 72. BUN 21, creatinine 0.7, sodium 130, potassium 3.2, chloride 98, CO2 24, bilirubin 2.7, AST 174, ALT 98. LDH 979. CK total of 7,926, which is improved from 19,511. Lactic acid 1.5. Hemoglobin is 13.4, hematocrit 38.6, WBC 2.3, platelets 40. Urinalysis is unremarkable. Blood culture and sputum culture are currently pending. 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 The patient was recently diagnosed with influenza, started on Tamiflu, continued to feel poorly with shortness of air, green sputum production and found to have hypoxia and suspected rhabdomyolysis. At this time, the patient remains pancytopenic. There is a strong concern for Staphylococcus pneumonia with influenza and would like to continue therapy with vancomycin, as well as PCP coverage. Will continue Bactrim at this time, Tamiflu and also add Rocephin. The patient does have a history of Aspergillus pneumonia but is status post lobectomy but will repeat a galactomannan and also discuss with Dr. Jerry Longoria if any antifungal is warranted. Will check a serum cryptococcal antigen, as well. Will request that the patient needs a bronchoscopy, and this was discussed with the thread roller. Will check a CD4 and CD8, as well as an HIV viral load. Will continue to hold antiretroviral therapy secondary to increasing CK total and discuss with Dr. Jerry Longoria. Will check routine labs in the morning, including a CBC and CMP. Further recommendations to follow pending the patient's clinical course. Thank you for allowing us to participate in the care of this patient. Dictated by... Luis MartPTimothyRTimothyNTimothy for Grace Ramos/benson TD: 09/14/2016 11:15 JOB #: [id number] CONSULTATION REPORT Page 1 of 1 X X CONSULTATION REPORT
--- NOTE | ~2016-09-13 | CO ---
Unit #: [id number] #: [id number] Patient: GENIE MONTERROSO [id number] [address] [address] [id number] I MR#: [id number] NAME: GENIE MONTERROSO ROOM: [facility]CU3 Age: 36 Sex: M Admission Date: 09/13/2016 : 1980 Attending Physician: Julio Thomson M.D. Primary Care Physician: Danielito Nelson M.D. Consultation Date: 09/19/2016 CONSULTATION REPORT REASON FOR CONSULT Low ejection fraction and ALEX. HISTORY OF PRESENT ILLNESS This is a 36-year-old white male new to our group with a past medical history of Burkitt lymphoma status post chemotherapy reportedly in 2011. Patient was diagnosed with HIV reportedly in 2004 and medical course has been complicated with Aspergillus pneumonia status post left lobectomy. There is no history of hypertension, hyperlipidemia, diabetes mellitus, myocardial infarction or cerebrovascular accident from documentation. The patient is currently on a ventilator and there is no family present to obtain information. Information has been obtained from prior documentation and nursing staff. The patient presented to the emergency department with shortness of breath, productive cough and recent influenza with a prescription of Tamiflu. In the emergency department his temperature was 97.8 with a pulse of 158, respirations 24 and blood pressure 127/70. O2 saturation was 94% on room air. Initial labs revealed platelet count of 45,000 and white blood cell count was 3.5. Hemoglobin was 14.7 with hematocrit of 41.8. Chemistry revealed a sodium of 126 with a potassium of 3.4. Creatinine was 1.0 with a BUN of 32. LFTs were elevated. Initial cardiac enzymes were negative. EKG revealed sinus tachycardia with nonspecific ST and T-wave changes. Imaging revealed interim development of extensive infiltrate in the left lung and some nodular-appearing infiltrate in the right base consistent with pneumonia. Patient was admitted for acute hypoxic respiratory failure and was ultimately intubated. He was placed on antibiotics. Blood cultures on 09/13/2016 were positive for Staph aureus. Repeat cultures were negative on 09/15/2016 but the patient continued to have intermittent fever. Two-D echocardiogram was completed and revealed an ejection fraction of 35% to 40%. Cardiology was consulted due to low ejection fraction as well as need for ALEX due to bacteremia and persistent fever. PAST MEDICAL HISTORY 1. Burkitt lymphoma, status post chemotherapy in 2011. 2. HIV diagnosed in 2004. 3. Aspergillus pneumonia, status post left lobectomy. 4. No history of hypertension, hyperlipidemia, diabetes mellitus, myocardial infarction or cerebrovascular accident from documentation. 5. History of marijuana use. 6. Reformed tobacco abuse. Unit #: [id number] #: [id number] Patient: GENIE MONTERROSO PAST SURGICAL HISTORY Left lobectomy. HOME MEDICATIONS Home medications include: 1. Selzentry. 2. Intelence 3. Isentress 4. Symbicort. ALLERGIES Penicillin. SOCIAL HISTORY Difficult to obtain per patient. According to documentation he is a reformed smoker and quit last year. No reports of alcohol. There is documentation of previous marijuana use. FAMILY HISTORY Difficult to obtain per patient. REVIEW OF SYSTEMS Difficult to obtain per patient. PHYSICAL EXAMINATION VITAL SIGNS: Temperature 100.4. Pulse 95. Blood pressure 143/79. CONSTITUTIONAL: This is a 36-year-old white male who is sedated, on the ventilator. SKIN: Skin is warm and dry. NECK: Neck is supple. No jugular vein distention. No hepatojugular reflux. Normal carotid upstrokes. No carotid bruits auscultated. HEART: S1, S2. Regular rate and rhythm. No murmurs, gallops or rubs. LUNGS: Bilateral breath sounds have coarse rhonchi throughout. Respirations even and unlabored. No rales or wheezes. ABDOMEN: Abdomen is soft, nontender and nondistended. Positive bowel sounds auscultated x4 quadrants. No ascites noted. EXTREMITIES: Bilateral lower extremities have no pretibial or pitting edema. DP and PT pulses 2+. Capillary refill less than two seconds. DIAGNOSTIC STUDIES LABORATORY: White blood cell count 8.4, hemoglobin 9.3, hematocrit 26.9, platelets 83, sodium 148, potassium 4.1, chloride 109, CO2 30, BUN 57, creatinine 1.2, glucose 176, AST 25, ALT 31, alkaline phosphatase 37, total protein 5.0, albumin 1.9, magnesium 1.9, INR 1.0. Urinalysis with trace leukocytes, positive bile, 3+ blood. Blood cultures on 09/13/2016 positive for Staph aureus. Blood cultures 09/15/2016 negative. Stool negative for C. diff on 09/19/2016. Sputum culture positive for Staph aureus on 09/14/2016. CK 565, with a total CK of 1416. IMAGING: Chest x-ray on 09/19/2016 reveals endotracheal tube at the level of the clavicle. Left internal jugular vein central venous line extends into the superior vena cava. Bilateral infiltrates with left upper lobe infiltrate. Infiltrates to the right lung worsened when compared to previous examination. CARDIOVASCULAR: EKG reveals sinus tachycardia with nonspecific ST and T-wave changes. Unit #: [id number] #: [id number] Patient: GENIE MONTERROSO IMPRESSION 1. Acute hypoxic respiratory failure. 2. Staphylococcus aureus bacteremia. 3. Status post ALEX on 09/19/2016 which reveals a left ventricular ejection fraction of 40%. No vegetation. 4. HIV. 5. History of lymphoma. 6. History of Aspergillus pneumonia, status post left lobectomy. 7. Anemia. 8. Thrombocytopenia. 9. Rhabdomyolysis. 10. Reformed tobacco abuse. PLAN 1. The patient presented to the hospital with shortness of breath and was admitted for a respiratory failure and pneumonia. He was ultimately intubated and remains on a ventilator. 2. Cardiology was consulted due to low EF and need for ALEX due to bacteremia. The patient's ALEX revealed no vegetation. 3. He will be started on NADYA inhibitor and beta anatoliy for cardiomyopathy. 4. Once his lung status improves and he is off the ventilator he could be considered for an ischemic workup. Dictated by... Talia Perez APRN for Grace Ramos TD: 09/21/2016 16:55 JOB #: [id number] CONSULTATION REPORT Page 1 of 1 X X CONSULTATION REPORT
--- NOTE | ~2016-09-13 | CT57 ---
[facility] A Service of [facility] & [facility] RADIOLOGY TEXT RESULTS PATIENT: GENIE MONTERROSO LOCATION: [facility] 326-01 : [birth year] UNIT #: [id number] AGE: [address]: Julio Thomson MD SEX: M ORDER DR: [id number] [place] [id number] [facility]. [place], [place] [address] [id number] I MR#: [id number] Acc #: [id number] NAME: GENIE MONTERROSO : 1980 SEX: M STUDY DATE/TIME: 09/21/2016 13:46 UNIT: A U ROOM: [facility] STUDY DESCRIPTION: CT Chest Wo Cont Attending Physician: Julio Thomson M.D. Referring Physician: Danielito Nelson M.D. Ordering Physician: Julio Thomson M.D. Primary Care Physician: Danielito Nelson M.D. MEDICAL IMAGING REPORT This report is preliminary unless electronic signature is present REVISED REPORT SEE ADDENDUM EXAM CT of the chest without contrast. INDICATION Respiratory failure and pneumonia. Patient was diagnosed with pneumonia September 15, 2016. Patient does have AIDS and is not compliant with his medications. TECHNIQUE Axial CT imaging was obtained from the thoracic inlet through the dome of the diaphragm. No intravenous contrast material was administered. This CT exam was performed with one or more of the following radiation dose reduction techniques: automatic exposure control, adjustment of mA and/or kV according to patient size, and iterative reconstruction. FINDINGS On prior study from September 2015, this patient was noted to have a cavitary mass within the left upper lobe. Per history, this was supposedly resected. However, on today's examination, there has been significant recurrence/progression of disease with a large area of cavitation containing debris and fluid now noted. This area now measures up to 12.3 x 6.8 cm, previously it was 4.3 x 4.1 cm. Patient is also noted to have some additional development of some patchy infiltrates within the right upper lobe with some associated bronchiectasis and dense consolidation is seen throughout the left lower lobe, as well. There is an area of consolidation within the right lower lobe measuring up to 3.1 x 2.7 cm. The thyroid gland appears heterogeneous. Patient has a weighted enteric feeding tube which extends into the small bowel. Endotracheal tube terminates above the level of the corie and there is a left internal STS. [facility] A Service of [facility] RADIOLOGY TEXT RESULTS PATIENT: GENIE MONTERROSO LOCATION: [facility] 326-01 : [birth year] UNIT #: [id number] AGE: [address]: Julio Thomson MD SEX: M ORDER DR: jugular vein central venous line which extends into the superior vena cava. There is probably a small pericardial effusion. The patient is noted to have a loculated left hydropneumothorax and probably trace effusion on the right. I do not see any acute abnormalities within the upper abdomen. Review of bony windows does not demonstrate any aggressive osseous abnormalities. IMPRESSION 1. Large area of cavitation identified within the left upper lobe with associated debris and fluid. While per history, it was resected last year, it has recurred, and is now significantly larger than on the prior exam from September 27, 2014, now measuring up to 12.3 x 6.8 cm. It is favored to represent recurrence/ progression of disease. Exact etiology of this process is not certain, but is favored to be the sequelae of atypical disease with fungal etiology suspected. Certainly, however, tuberculosis would be in the differential. Malignancy would be another consideration but is considered to be much less likely. Patient is also noted to have a loculated left hydropneumothorax. 2. Since the prior examination, this patient has developed some infiltrates within the right upper lobe with some associated bronchiectasis which is favored to represent some additional involvement of the cavitary process on the left. Patchy consolidation within the right lower lobe as well as dense opacification seen throughout the left lower lobe are favored to represent multifocal pneumonia. Please see the body of the report for any other additional incidental findings. Please note given progression of disease within the left upper lobe, thoracic surgery consultation is suggested if not previously obtained. Dictated by... Trina Ferguson M.D. THIS IS AN ELECTRONICALLY VERIFIED REPORT Trina Ferguson M.D. at 09/22/2016 7:53 AM AFF/tmw TD: 09/21/2016 16:50 JOB #: [id number] ADDENDUM EXAM [facility] A Service of [facility] & [facility] RADIOLOGY TEXT RESULTS PATIENT: GENIE MONTERROSO LOCATION: [place] [address] : [birth year] UNIT #: [id number] AGE: [address]: Julio Thomson MD SEX: M ORDER DR: CT chest without contrast 09/21/2016 ADDENDUM Please note findings were reviewed with Dr. Noe at the time of this dictation. 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 Dictated by... Trina Ferguson M.D. THIS IS AN ELECTRONICALLY VERIFIED REPORT Trina Ferguson M.D. at 09/24/2016 12:26 PM AFF/jf TD: 09/21/2016 17:00 JOB #: [id number] CC: Reji/invision Please Delete MEDICAL IMAGING REPORT Page 1 of 1 COPY
--- NOTE | ~2016-09-13 | CR72 ---
[facility] A Service of [facility] & [facility] RADIOLOGY TEXT RESULTS PATIENT: GENIE MONTERROSO LOCATION: [address]21 : [birth year] UNIT #: [id number] AGE: [address]: Julio Thomson MD SEX: M ORDER DR: [id number] [facility] [address] [facility] [place], [place] [address] [id number] I MR#: [id number] Acc #: [id number] NAME: GENIE MONTERROSO : 1980 SEX: M STUDY DATE/TIME: 09/14/2016 18:12 UNIT: [facility] ROOM: [facility] STUDY DESCRIPTION: CR Chest Single View Portable Attending Physician: Nam Chand M.D. Referring Physician: Danieltio Nelson M.D. Ordering Physician: Nam Chand M.D. Primary Care Physician: Danielito Nelson M.D. MEDICAL IMAGING REPORT This report is preliminary unless electronic signature is present EXAM Portable chest HISTORY SUPPLIED Acute desaturation, shortness of breath, hypoxemia. AP portable view is obtained and compared directly to the patient's previous examination of 09/14/2016 at 14:24 hours. FINDINGS Bilateral pulmonary parenchymal infiltrates persist. These have not changed. No pneumothorax is seen. ET tube nasoenteric tube and left IJ line appear in appropriate position. CONCLUSION Continued diffuse severe bilateral infiltrates. Tubes and lines in appropriate position. No pneumothorax Dictated by... Jan Blake M.D. THIS IS AN ELECTRONICALLY VERIFIED REPORT Jan Blake M.D. at 09/18/2016 2:45 PM Acacia TD: 09/14/2016 21:56 JOB #: [id number] MEDICAL IMAGING REPORT Page 1 of 1 COPY
--- NOTE | ~2016-09-13 | CO ---
Unit #: [id number] #: [id number] Patient: GENIE MONTERROSO [id number] [facility] [address] [facility]. [place], [place] [address] [id number] I MR#: [id number] NAME: GENIE MONTERROSO ROOM: [facility] Age: 36 Sex: M Admission Date: 09/13/2016 : 1980 Attending Physician: Nam Chand M.D. Primary Care Physician: Danielito Nelson M.D. Requesting Physician: Nam Chand M.D. Consultation Date: 09/15/2016 CONSULTATION REPORT REASON FOR CONSULTATION Acute renal failure, metabolic acidosis, and oliguria. Thank you for the consult. HISTORY OF PRESENT ILLNESS Mr. Monterroso is a 36-year-old white male, with history of Burkitt's lymphoma, and history of HIV. He was initially admitted to [facility] on September 13 with pneumonia. Recent history of influenza. Initially his complaints were shortness of breath, cough, and increasing sputum production, per chart review. He apparently had significant decline in his overall clinical and respiratory status and eventually developed respiratory failure. He was transferred to the intensive care unit, intubated, sedated, and placed on the ventilator. He has had evidence of worsening pneumonia, possible ARDS, remains on fairly high FIO2 requirements per pulmonary, last FIO2 was 80%. He has been intermittently hypotensive, currently on Rufino-Synephrine. He been oliguric with urine output of about 60 mL per hour but seems like it has been increasing somewhat over the last several hours. Urine was initially very dark in color, according to the family. It is becoming much etcher aircraft over the course of the day today. I don't really see that he has received any NSAIDs. He did have a CT of the abdomen and pelvis done on the which looks to have been a noncontrasted exam, otherwise I don't see any recent IV contrast. No Jordon inhibitors, diuretics, ARBs, or any nephrotoxic antibiotics. He has been on IV antibiotics since admission and infectious disease is following that. He was noted, on echo, to have an ejection fraction of 30% likely acute secondary to his sepsis. No prior history of coronary disease, congestive heart failure, or cardiomyopathy. Nephrology consultation was requested secondary to worsening renal function. He has no prior history of chronic kidney disease or renal failure. His admission creatinine was 1.0. It decreased to 0.7 and has been increasing to 0.8 yesterday and up to 1.2 earlier today. He was also noted to have worsening acidosis on ABG, worsening hypocalcemia, and his albumin has dropped from 3.2 on admission to 1.4. The patient is currently intubated and sedated on the ventilator unable to give any history. All of the history was obtained per chart review, discussion with family at bedside, and discussion with nursing. Additional history regarding his past medical history, HIV, and Burkitt's lymphoma was obtained from his family directly at bedside in addition to chart review. Old medical records have been reviewed. PAST MEDICAL HISTORY Significant for history of Burkitt's lymphoma and HIV, I don't have any details about whether this was treated, also history of prior pneumonia. Unit #: [id number] #: [id number] Patient: GENIE MONTERROSO SOCIAL HISTORY Former smoker, no alcohol, lives with his partner, no mention of illicit drug use. FAMILY HISTORY Crohn's, I don't see any mention of chronic kidney disease, family is not aware of this either. ALLERGIES Penicillin. REVIEW OF SYSTEMS Unobtainable as the patient is intubated and sedated on the ventilator. MEDICATIONS It looks like he did receive a onetime dose of Bactrim, IV, also been on Levaquin, Tamiflu. CURRENT MEDICATIONS Include: 1. Florastor 2. Albuterol 3. Protonix 4. Combivent 5. Tylenol 6. Vancomycin 7. Solu-Medrol 8. Robitussin 9. Potassium protocol 10. Fentanyl 11. Levophed He is currently on half normal saline plus sodium bicarb, also IV Clindamycin. PHYSICAL EXAMINATION GENERAL: He is intubated, sedated on the ventilator, ill-appearing, in no acute distress. VITALS: Temperature 99.7, pulse 111, respiratory rate 28, blood pressure 117/65, and O2 sats 93% on 80% FIO2. HEENT: Normocephalic, atraumatic. Mucous membranes moist. Endotracheal tube is in place. NECK: Supple. No jugular venous distention. No lymphadenopathy or thyromegaly. CHEST: Coarse breath sounds, decreased air movement, coarse rhonchi, and congestion. CARDIOVASCULAR EXAM: Tachycardic, S1 and S2, no murmurs, rubs, or gallops. ABDOMEN: Soft, nontender, and nondistended, positive bowel sounds, no organomegaly, rebound, or guarding. EXTREMITIES: No cyanosis, clubbing, or edema. DERM: No rash or skin breakdown. HEME: No bruising or bleeding. PSYCH: Could not assess. NEURO: No focal deficits. MUSCULOSKELETAL: No focal joint deformities, or swelling. DIAGNOSTIC STUDIES Unit #: [id number] #: [id number] Patient: GENIE MONTERROSO LABORATORY: ABG shows pH of 7.2, pCO2 of 47, bicarb of 20. Chemistries, BUN and creatinine 20 and 1.2, sodium 132, CO2 20, calcium 6.7, albumin 1.4, AST 61, ALT 59, LDH 454, CK level is 1416 which is down from 1900. INR is 1. CBC, white count 3.1, hemoglobin 10.5, hematocrit 31, platelets 30,000. Urinalysis on admission, 3+ protein, 3+ blood, 5-10 red blood cells. IMAGING: CT abdomen and pelvis, personally reviewed, showing dense air space consolidation left lower lung, multifocal pneumonia, nothing acute in the abdomen and pelvis, and tiny nonobstructing right kidney stones. Again all records reviewed and showed no prior renal disease, have discussed with the family, additional history from them, and also discussed with RN regarding hospital course so far. ASSESSMENT 1. Acute renal failure, non-oliguric, likely secondary to ATN from sepsis and septic shock, currently on IV fluids, bicarb drip, will change to slightly lower bicarb concentration as his current IV fluids are hypertonic. Unlikely to be prerenal but will get some urine electrolytes to further evaluate. 2. Acute hypoxemic respiratory multifactorial, currently on a ventilator likely combination of ARDS and pneumonia, will need to watch oxygen requirements very closely if gets any worse might need to consider stopping fluids and diuresing. 3. Acute metabolic acidosis. 4. Acute respiratory acidosis with hypercarbia. 5. History of hypertension. 6. Septic shock, remains on pressors and antibiotics, ID is following. 7. Acute congestive heart failure, ejection fraction of 30%. 8. New, worsening pneumonia. 9. Worsening thrombocytopenia likely secondary to sepsis. 10. Anemia. 11. Leukopenia. 12. Burkitt's lymphoma. 13. Worsening hypocalcemia. 14. Worsening protein malnutrition. 15. Increased LFTs. 16. Rhabdomyolysis, present on admission and improved. Plan as above, very ill, critically ill in the intensive care unit. Nonoliguric so I am optimistic that his creatinine will stabilize over the next several days. He is on a bicarb drip for rhabdomyolysis as well as metabolic acidosis, will decrease IV fluids to half normal saline with 75 of bicarb as his current fluids are hypertonic. May eventually need some diuresis especially if his oxygenation worsens. Will replace calcium IV, check an INS calcium in the morning, check some additional urine studies, follow serial CK levels and we will continue to follow him and monitor closely in the intensive care unit. I was called urgently to see the patient secondary to the severity of his underlying illness. The patient was seen in the critical care unit and remains critically ill and a total of forty minutes of direct patient care, critical care time was spent. This was independent of any separately billed procedures or time. Unit #: [id number] #: [id number] Patient: GENIE MONTERROSO Dictated by... Grace Wan/john TD: 09/16/2016 15:27 JOB #: [id number] CONSULTATION REPORT Page 1 of 1 X STEFANIA WALTERS CONSULTATION REPORT
--- NOTE | ~2016-09-13 | CR72 ---
[facility] A Service of [facility] & [facility] RADIOLOGY TEXT RESULTS PATIENT: GENIE MONTERROOS LOCATION: [address] : [birth year] UNIT #: [id number] AGE: [address]: Julio Thomson MD SEX: M ORDER DR: [id number] [facility] [address] [facility]. [place], [place] [address] [id number] I MR#: [id number] Acc #: [id number] NAME: GENIE MONTERROSO : 1980 SEX: M STUDY DATE/TIME: 09/20/2016 3:44 UNIT: [facility] ROOM: [facility] STUDY DESCRIPTION: CR Chest Single View Portable Attending Physician: Juloi Thomson M.D. Referring Physician: Danielito Nelson M.D. Ordering Physician: Shaun Noe M.D. Primary Care Physician: Danielito Nelson M.D. MEDICAL IMAGING REPORT This report is preliminary unless electronic signature is present EXAM Portable chest HISTORY Pneumonia, shortness of air, rhabdomyolysis, respiratory failure x1 weeks, prior left lobectomy. COMPARISON 09/19/2016 FINDINGS Portable view of the chest demonstrates tubes or lines in satisfactory position unchanged. No significant change in cardiopulmonary status with continued diffuse interstitial prominence throughout both lungs. There is left-sided volume loss consistent with patient's history of left lower lobe lobectomy. Cystic areas are seen in the left upper lung may represent areas of mass hematocele lung cysts. In this patient with history of aspergillosis this could be secondary to fungal infection. This is unchanged. No pneumothorax. Dictated by... Magdalena Fang M.D. THIS IS AN ELECTRONICALLY VERIFIED REPORT Magdalena Fang M.D. at 09/20/2016 12:26 PM Uma TD: 09/20/2016 08:45 JOB #: [id number] MEDICAL IMAGING REPORT Page 1 of 1 COPY
--- NOTE | ~2016-09-13 | OR ---
Unit #: [id number] #: [id number] Patient: GENIE MONTERROSO [id number] [address] [place], [place] [address] [id number] I MR#: [id number] NAME: GENIE MONTERROSO ROOM: [facility] Date of Procedure: 09/14/2016 Admission Date: 09/13/2016 Surgeon: Shaun Noe M.D. : 1980 Attending Physician: Nam Chand M.D. Referring Physician: Danielito Nelson M.D. Primary Care Physician: Danielito Nelson M.D. PROCEDURE OPERATIVE NOTE PROCEDURE Endotracheal intubation. INDICATION Respiratory failure. PREPROCEDURE DIAGNOSIS Respiratory failure. POSTPROCEDURE DIAGNOSIS Respiratory failure. DETAILS OF PROCEDURE After placing patient in proper position, using a size 4 MAC laryngoscope, a size 8 endotracheal tube was passed with direct visualization of vocal cords. Good color change on end-tidal CO2 monitor. No complications happened. Patient tolerated the procedure very well. A postprocedure chest x-ray was ordered. Dictated by... Grace Delaney TD: 09/14/2016 21:30 JOB #: [id number] PROCEDURE OPERATIVE NOTE Page 1 of 1 X Shaun Noe MD X PROCEDURE OPERATIVE NOTE
--- NOTE | ~2016-09-13 | CR72 ---
[facility] A Service of [facility] RADIOLOGY TEXT RESULTS PATIENT: GENIE MONTERROSO LOCATION: [address] : [birth year] UNIT #: [id number] AGE: [address]: Julio Thomson MD SEX: M ORDER DR: [id number] [facility] [address] [place], [place] [address] [id number] I MR#: [id number] Acc #: [id number] NAME: GENIE MNOTERROSO : 1980 SEX: M STUDY DATE/TIME: 09/14/2016 14:24 UNIT: [facility] ROOM: [facility] STUDY DESCRIPTION: CR Chest Single View Portable Attending Physician: Nam Chand M.D. Referring Physician: Danielito Nelson M.D. Ordering Physician: Shaun Noe M.D. Primary Care Physician: Danielito Nelson M.D. MEDICAL IMAGING REPORT This report is preliminary unless electronic signature is present EXAM Portable chest HISTORY Central line placement. FINDINGS An AP view of the chest is obtained and compared directly to the study of 09/14. Endotracheal tube nasoenteric tube and left IJ line all appear in good position. The tip of the IJ line is in the SVC. The right sided line has been removed. Bilateral pulmonary parenchymal infiltrates persist. Left-sided infiltrate is quite extensive and is unchanged. On the right side there is an increase in infiltrate at the base. No pneumothorax is seen. CONCLUSION 1. New left IJ line tip in the SVC. No pneumothorax. 2. Extensive bilateral pulmonary infiltrates with an increase in infiltrate at the right base. Dictated by... Jan Blake M.D. THIS IS AN ELECTRONICALLY VERIFIED REPORT Jan Blake M.D. at 09/18/2016 2:44 PM LUIGI/piotr TD: 09/14/2016 15:04 JOB #: [id number] MEDICAL IMAGING REPORT Page 1 of 1 COPY
--- NOTE | ~2016-09-13 | EKG ---
PATIENT: GENIE MONTERROSO UNIT #: [id number] Ventricular Rate: 131 BPM Atrial Rate: 131 BPM P-R Interval: 132 ms QRS Duration: 98 ms Q-T Interval: 294 ms QTC Calculation(Bezet): 434 ms P Perry: 76 degrees Calculated R Perry: 81 degrees Calculated T Perry: 78 degrees Diagnosis Line: Sinus tachycardia Diagnosis Line: Otherwise normal ECG Diagnosis Line: When compared with ECG of 14-SEP-2016 14:47, Diagnosis Line: (unconfirmed) Diagnosis Line: No significant change was found Diagnosis Line: Confirmed by KIMBERLYN MOSER MD ([id number]) on 09/18/2016 Diagnosis Line: 10:40:04 PM INTERPRETING MD: EHSAN CUEVAS
--- NOTE | ~2016-09-13 | CR72 ---
[facility] A Service of [facility] & [facility] RADIOLOGY TEXT RESULTS PATIENT: GENIE MONTERROSO LOCATION: [address]21 : [birth year] UNIT #: [id number] AGE: [address]: Nam Chand MD SEX: M ORDER DR: [id number] [facility] [address] [place], [place] [address] [id number] I MR#: [id number] Acc #: [id number] NAME: GENIE MONTERROSO : 1980 SEX: M STUDY DATE/TIME: 09/14/2016 11:40 UNIT: [facility] ROOM: [facility] STUDY DESCRIPTION: CR Chest Single View Portable Attending Physician: Nam Chand M.D. Referring Physician: Danielito Nelson M.D. Ordering Physician: Nam Chand M.D. Primary Care Physician: Danielito Nelson M.D. MEDICAL IMAGING REPORT This report is preliminary unless electronic signature is present EXAM Portable chest. HISTORY Central line placement. Shortness of breath onset today. TECHNIQUE Single view chest was obtained and compared with 09/13/2016. FINDINGS The endotracheal tube and Dobbhoff tube appear in satisfactory position. There is a right-sided jugular line that is coiled in the supraclavicular area, likely not in the vascular tree or at least not satisfactorily positioned. The tip of the central line points upward toward the jugular vein. Extensive infiltrate in the left lung is again noted. There is more consolidation in the left lung base since the previous exam. Patchy mild infiltrates are seen on the right and are unchanged. IMPRESSION 1. The right jugular line tip is abnormal. The catheter coils in the right supraclavicular space and does not appear to be in satisfactory position in the superior vena cava. 2. The endotracheal tube and nasogastric tube are satisfactory. 3. Increased infiltrate at the left lung base since the previous exam. STAT * RESULT Dictated by... Esteban Moncada M.D. THIS IS AN ELECTRONICALLY VERIFIED REPORT [facility] A Service of [facility] & [facility] RADIOLOGY TEXT RESULTS PATIENT: GENIE MONTERROSO LOCATION: [address] : [birth year] UNIT #: [id number] AGE: [address]: Nam Chand MD SEX: M ORDER DR: Esteban Moncada M.D. at 09/14/2016 3:43 PM RLF/muna TD: 09/14/2016 12:08 JOB #: [id number] MEDICAL IMAGING REPORT Page 1 of 1 COPY
--- NOTE | ~2016-09-13 | CR72 ---
[facility] A Service of [facility] RADIOLOGY TEXT RESULTS PATIENT: GENIE MONTERROSO LOCATION: [address]21 : [birth year] UNIT #: [id number] AGE: [address]: Julio Thmoson MD SEX: M ORDER DR: [id number] [facility] [address] [place] [address] [place], [place] [address] [id number] I MR#: [id number] Acc #: [id number] NAME: GENIE MONTERROSO : 1980 SEX: M STUDY DATE/TIME: 09/19/2016 4:13 UNIT: [facility] ROOM: [facility] STUDY DESCRIPTION: CR Chest Single View Portable Attending Physician: Julio Thomson M.D. Referring Physician: Danielito Nelson M.D. Ordering Physician: Shaun Noe M.D. Primary Care Physician: Danielito Nelson M.D. MEDICAL IMAGING REPORT This report is preliminary unless electronic signature is present EXAM Chest radiograph. INDICATIONS Respiratory failure since September 13, 2016 FINDINGS Endotracheal tube terminates at the level of the clavicles. Left internal jugular vein central venous line extends into the superior vena cava. Heart size is within normal limits. There are bilateral infiltrates, left upper lobe infiltrate shows increasing cavitation when compared to the original exams from September 13, 2016. Infiltrates throughout the right lung have also worsened when compared to that examination. No pneumothorax or definite pleural effusion is seen. Finding can be better assessed with dedicated CT of the chest. Dictated by... Trina Ferguson M.D. THIS IS AN ELECTRONICALLY VERIFIED REPORT Trina Ferguson M.D. at 09/19/2016 3:41 PM AFF/dj TD: 09/19/2016 10:36 JOB #: [id number] MEDICAL IMAGING REPORT Page 1 of 1 COPY
--- NOTE | ~2016-09-13 | CR7 ---
[facility] A Service of [facility] & [facility] RADIOLOGY TEXT RESULTS PATIENT: GENIE MONTERROSO LOCATION: [facility]3-21 : [birth year] UNIT #: [id number] AGE: [address]: Julio Thomson MD SEX: M ORDER DR: [id number] [facility] [address] [place], [place] [address] [id number] I MR#: [id number] Acc #: [id number] NAME: GENIE MONTERROSO : 1980 SEX: M STUDY DATE/TIME: 09/19/2016 15:37 UNIT: [facility] ROOM: [facility] STUDY DESCRIPTION: CR Abdomen Single AP View Attending Physician: Julio Thomson M.D. Referring Physician: Danielito Nelson M.D. Ordering Physician: Julio Thomson M.D. Primary Care Physician: Danielito Nelson M.D. MEDICAL IMAGING REPORT This report is preliminary unless electronic signature is present EXAM Portable abdomen HISTORY Dobbhoff tube placement today. FINDINGS Portable radiograph of the abdomen for Dobbhoff tube placement demonstrates the feeding tube tip is in the medial left midabdomen at the level of the distal gastric body 21 cm beyond the EG junction. The visualized bowel gas pattern is normal. Exam does not include the most inferior pelvis. Dictated by... Tho Perez M.D. THIS IS AN ELECTRONICALLY VERIFIED REPORT Tho Perez M.D. at 09/19/2016 11:36 PM DFL/piotr TD: 09/19/2016 19:37 JOB #: [id number] MEDICAL IMAGING REPORT Page 1 of 1 COPY
--- NOTE | ~2016-09-13 | FU ---
[facility] Nutrition Therapy DATE: 09/25/16 Patient: GENIE MONTERROSO Physician: STEPHANIE Address: [address] [place] [address] DILAN Room/Bed: [address] [place] [address], Zip: [place] [phone] Admit Date: 09/13/16 Date of : [birth year] Height: 5 7 Weight: 133 60.6 NUTRITION MONITORING/FOLLOW-UP: Reason: FOLLOW UP Anthropometrics: Wt 09/25: 60.6 kg Labs: Gluc 145 BUN 32 Ca++ 8.3 Meds: MgSO4, KCl, solu-medrol, protonix, zofran I&O's: 2440/3205, last BM 09/24 Skin: Redness to coccyx, no other changes noted Estimated Nutrition Needs: Increased d/t PMH, Dx Diet: Regular +thin liquids Assessment: Chart reviewed, events noted. Pt has been ordered a regular diet with thin liquids per MANAGER OF ORGANIZATIONAL DEVELOPMENT recommendations. RD spoke with the pt at bedside. Pt states "I eat like a pig" and consumes 100% of meals. Pt reports that he either orders food from [facility] or family/ friends bring him in food. Pt denied having any questions regarding nutrition, and stated that he does not need supplements. RD encouraged adequate, balanced nutrient intake. Previous nutrition diagnosis resolved. See new Dx. 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 Intervention: 1. Regular diet Monitoring, Evaluation and Goals: 1. Oral intake; tolerate >50-75% meals 2. Labs; WNL 3. Weight; prevent unintentional weight loss 4. Skin; prevent breakdown Recommendations: 1. Continue regular diet as tolerated. Status: Pt is at mild nutritional risk. Respectfully, [facility] Nutrition Therapy DATE: 09/25/16 Patient: GENIE KRISS Physician: STEPHANIE Address: [address] [place] [address] DILAN Room/Bed: [address] [place] [address], Zip: [place] [phone] Admit Date: 09/13/16 Date of : [birth year] Height: 5 7 Weight: [address], LD [employer] [facility] [employer] cc: client file
--- NOTE | ~2016-09-13 | FU ---
[facility] Nutrition Therapy DATE: 09/21/16 Patient: GENIE MONTERROSO Physician: STEPHANIE Address: [address] Room/Bed: [address], Zip: [place] [phone] Admit Date: 09/13/16 Date of : [birth year] Height: 5 7 Weight: 148 67.4 NUTRITION MONITORING/FOLLOW-UP: Reason: TF F/U Anthropometrics: Ht: 5'7" Adm wt: 64.5 kg BMI: 22.3 Current wt: 67.3 kg Labs: Gluc 139, BUN 41, Ca++ 7.8, Alb 1.9 Meds: Propofol @ 24.8 mL/hr, Versed, Fentanyl, Mg, K, Solu-Medrol, D5%, Levophed, Protonix, NaCl I&O's: 3594/2977, last BM 09/20 Skin: Red/hard/bruise (R AC space) Estimated Nutrition Needs: 4640-3543 kcal (28-32 kcal/kg) 77-97 g protein (1.2-1.5 g/kg) Assessment: Chart reviewed, events noted. Pt is still on the vent in the ICU. Pt is currently tolerating Jevity 1.5 @ 40 mL/hr + Prostat BID. RN reports pt has not received Prostat yet today, RD to call kitchen for Prostat. Pt received 100% of goal volume within the past 24 hrs per pump history. Pt's propofol rate increased to 24.8 mL/hr, which is providing an extra 655 kcals. See recommendations below. Dx: Inadequate protein-energy intake RT clinical condition AEB intubated. -RESOLVED New Dx: Inadequate oral intake RT current clinical condition AEB intubated, need for enteral nutrition support. -ACTIVE Intervention: 1. Enteral nutrition support Monitoring, Evaluation and Goals: 1. Enteral nutrition; provide >80% of goal volume X 24 hrs. -MET 2. Labs; WNL -IN PROGRESS 3. Weight; prevent unintentional weight loss, promote gradual weight gain towards IBW -IN PROGRESS Recommendations: 1. While pt remains of propofol @ 24.8 mL/hr, decrease Jevity 1.5 to goal rate of 35 mL/hr + 30 mL prostat BID. This will provide: 2115 kcal/ 84 g protein/ 638 mL free H2O. [facility] Nutrition Therapy DATE: 09/21/16 Patient: GENIE MONTERROSO Physician: STEPHANIE Address: [address] [place] [address] Room/Bed: [address], Zip: [place] [address] Admit Date: 09/13/16 Date of : [birth year] Height: 5 7 Weight: 148 67.4 2. When pt is no longer receiving propofol, increase Jevity 1.5 to 55 mL/hr and discontinue prostat. This will provide 1980 kcal/ 84 g protein/ 1003 mL free H2O. Status: Pt is at a moderate nutritional risk. RD will f/u per protocol. Respectfully, ROSENDO MOULTON, Multiple Needle Stitcher Liliya Ayala, [place], LD [employer] and Nutrition[facility] Services [facility] cc: client file
--- NOTE | ~2016-09-13 | US139 ---
[facility] A Service of [facility] & [facility] RADIOLOGY TEXT RESULTS PATIENT: GENIE MONTERROSO LOCATION: [address]21 : [birth year] UNIT #: [id number] AGE: [address]: Julio Thomson MD SEX: M ORDER DR: [id number] [facility] [address] [place], [place] [address] [id number] I MR#: [id number] Acc #: [id number] NAME: GENIE MONTERROSO : 1980 SEX: M STUDY DATE/TIME: 09/21/2016 20:12 UNIT: [facility] ROOM: [facility] STUDY DESCRIPTION: US UE Veins Complete Michel Stdy Attending Physician: Julio Thomson M.D. Referring Physician: Danielito Nelson M.D. Ordering Physician: Ed Danie Armando M.D. Primary Care Physician: Danielito Nelson M.D. MEDICAL IMAGING REPORT This report is preliminary unless electronic signature is present EXAM Bilateral upper extremity venous ultrasound HISTORY Bilateral upper extremity swelling, right greater than left for 8 days. FINDINGS Ultrasound examination of the upper extremity veins was performed with kinney-scale, color Doppler and spectral Doppler evaluation. There is occlusive DVT in the right internal jugular vein, and nonocclusive DVT in the right subclavian vein. There is occlusive superficial clot in the mid cephalic vein. I called these findings to the patient's nurse at the time of this dictation. The remainder of the right upper extremity veins are patent and compressible. No DVT or SVT in the left upper extremity. IMPRESSION 1. Exam is positive for occlusive clot in the right internal jugular vein and nonocclusive clot in the right subclavian vein. 2. There is also occlusive superficial clot in the mid right cephalic vein. I called these findings to the patient's nurse at the time of this dictation. 3. Negative left upper extremity venous ultrasound. Dictated by... Tho Perez M.D. THIS IS AN ELECTRONICALLY VERIFIED REPORT Tho Perez M.D. at 09/22/2016 2:57 PM DFL/psc [facility] A Service of [facility] & [facility] RADIOLOGY TEXT RESULTS PATIENT: GENIE MONTERROSO LOCATION: [facility]3-21 : [birth year] UNIT #: [id number] AGE: [address]: Julio Thomson MD SEX: M ORDER DR: TD: 09/22/2016 03:07 JOB #: [id number] MEDICAL IMAGING REPORT Page 1 of 1 COPY
--- NOTE | ~2016-09-13 | CR72 ---
[facility] A Service of [facility] RADIOLOGY TEXT RESULTS PATIENT: GENIE MONTERROSO LOCATION: [address]21 : [birth year] UNIT #: [id number] AGE: [address]: Julio Thomson MD SEX: M ORDER DR: [id number] [facility] [address] [place], [place] [address] [id number] I MR#: [id number] Acc #: [id number] NAME: GENIE MONTERROSO : 1980 SEX: M STUDY DATE/TIME: 09/15/2016 17:01 UNIT: [facility] ROOM: [facility] STUDY DESCRIPTION: CR Chest Single View Portable Attending Physician: Nam Chand M.D. Referring Physician: Danielito Nelson M.D. Ordering Physician: Shaun Noe M.D. Primary Care Physician: Danielito Nelson M.D. MEDICAL IMAGING REPORT This report is preliminary unless electronic signature is present EXAM Portable chest, 09/15/16 HISTORY Respiratory failure and respiratory distress with decreased O2 saturations which have worsened today. History of AIDS FINDINGS AP portable views of the chest are compared with earlier today. ET tube mid trachea. Left IJ line tip in the SVC. The heart size remains normal. Fairly diffuse infiltrates in the left lung with more patchy infiltrates in the right lung with a basilar predominance are again seen, presumably reflects diffuse pneumonia. These infiltrates are stable. There is a small amount of left pleural fluid. No pneumothorax. IMPRESSION No change in bilateral infiltrates. No pneumothorax. Persistent small left effusion. Well positioned ET tube and left IJ line. Dictated by... Esteban Resendiz Jr., M.D. THIS IS AN ELECTRONICALLY VERIFIED REPORT Esteban Resendiz Jr., M.D. at 09/18/2016 7:27 AM YVONNE/abby TD: 09/15/2016 23:27 JOB #: [id number] [facility] A Service of [facility] RADIOLOGY TEXT RESULTS PATIENT: GENIE MONTERROSO LOCATION: [facility]3-21 : 78 UNIT #: [id number] AGE: [address]: Julio Thomson MD SEX: M ORDER DR: MEDICAL IMAGING REPORT Page 1 of 1 COPY
--- NOTE | ~2016-09-13 | OR ---
Unit #: [id number] #: [id number] Patient: GENIE MONTERROSO [id number] [address] [place], [place] [address] [id number] I MR#: [id number] NAME: GENIE MONTERROSO ROOM: [facility] Date of Procedure: 09/14/2016 Admission Date: 09/13/2016 Surgeon: Shaun Noe M.D. : 1980 Attending Physician: Nam Chand M.D. Referring Physician: Danielito Nelson M.D. Primary Care Physician: Danielito Nelson M.D. PROCEDURE OPERATIVE NOTE NAME OF PROCEDURE Diagnostic bronchoscopy. INDICATION Pneumonia. PREPROCEDURE DIAGNOSIS Pneumonia. POSTPROCEDURE DIAGNOSIS Pneumonia. DETAILS OF PROCEDURE After taking consent from the patient and explaining the risks and benefits, patient was placed in appropriate position. A bronchoscope was introduced through the endotracheal tube which was sitting well above the corie. We examined the right upper, right middle, and right lower lobes, and left lower lobe. No endobronchial lesion was found. There were thick mucoid secretions in both lungs which were therapeutically suctioned. Then we did a bronchoalveolar lavage in the left lower lobe area with 100 mL of saline in and 20 mL back. Patient tolerated the procedure very well. No complication happened. Dictated by... Grace Delaney/funmilayo TD: 09/14/2016 21:36 JOB #: [id number] PROCEDURE OPERATIVE NOTE Page 1 of 1 X Shaun Noe MD PROCEDURE OPERATIVE NOTE
--- NOTE | ~2016-09-13 | HP ---
Unit #: [id number] #: [id number] Patient: GENIE MONTERROSO [id number] [address] [place], [place] [address] [id number] I MR#: [id number] NAME: GENIE MONTERROSO ROOM: [facility] Age: 36 Sex: M Admission Date: 09/13/2016 : 1980 Attending Physician: Yajaira Cannon M.D. Referring Physician: Danielito Nelson M.D. Primary Care Physician: Danielito Nelson M.D. HISTORY AND PHYSICAL ADDENDUM In regards to this patient's rhabdomyolysis, I wonder if this is in part related to his HAART medications, particularly, his Isentress. Therefore, I will write to hold his HAART medicines until seen in the morning by Infectious Disease. Dictated by Yajaira Cannon M.D. AML/bd TD: 09/14/2016 07:11 JOB #: [id number] HISTORY AND PHYSICAL Page 1 of 1 X Yajaira Cannon MD HISTORY AND PHYSICAL
--- NOTE | ~2016-09-13 | CR72 ---
[facility] A Service of [facility] & [facility] RADIOLOGY TEXT RESULTS PATIENT: GENIE MONTERROSO [facility] [birth year] UNIT #: [id number] AGE: [address]: Julio Thomson MD SEX: M ORDER DR: [id number] [facility] [address] [place], [place] [address] [id number] I MR#: [id number] Acc #: [id number] NAME: GENIE MONTERROSO : 1980 SEX: M STUDY DATE/TIME: 09/17/2016 4:41 [facility] STUDY DESCRIPTION: CR Chest Single View Portable Attending Physician: Julio Thomson M.D. Referring Physician: Danielito Nelson M.D. Ordering Physician: Shaun Noe M.D. Primary Care Physician: Danielito Nelson M.D. MEDICAL IMAGING REPORT This report is preliminary unless electronic signature is present EXAM Portable AP view of the chest COMPARISON September 16, 2016; September 15, 2016 and September 14, 2016. INDICATION 36-year-old male with dyspnea, cough and pneumonia for 5 days with respiratory failure requiring ventilatory support. 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 FINDINGS/IMPRESSION Left internal jugular catheter tip terminates in the upper SVC, grossly stable. Feeding tube not traced below the level of the stomach where it passes off the bottom aspect of the image. Endotracheal tube again noted with the tip located 5.4 cm above the corie. Right apical pleural parenchymal thickening is stable. There are grossly stable patchy opacities throughout the right lung with more confluent lingular and left lower lobe opacities which are unchanged. There does appear to be 1 or multiple cavitary lesions within the left upper lobe. Given the patient's history of aspergillosis, recurrent Aspergillus infection cannot be excluded. The findings in the lungs could represent any combination of pneumonia or ARDS as well. Findings elsewhere in the lungs could be better evaluated with CT. No significant pleural effusion. Cardiomediastinal silhouette is normal. No pneumothorax. Dictated by... Diogenes Angeles M.D. THIS IS AN ELECTRONICALLY VERIFIED REPORT Diogenes Angeles M.D. at 09/20/2016 10:35 AM SEBASTIAN/yolande [facility]. [facility] A Service of [facility] & [facility] RADIOLOGY TEXT RESULTS PATIENT: GENIE MONTERROSO LOCATION: [address] : [birth year] UNIT #: [id number] AGE: [address]: Julio Thomson MD SEX: M ORDER DR: TD: 09/17/2016 21:51 JOB #: [id number] MEDICAL IMAGING REPORT Page 1 of 1 COPY
--- NOTE | ~2016-09-13 | CR72 ---
[facility] A Service of [facility] & [facility] RADIOLOGY TEXT RESULTS PATIENT: GENIE MONTERROSO LOCATION: [address] : [birth year] UNIT #: [id number] AGE: [address]: Nam Chand MD SEX: M ORDER DR: [id number] [facility] [address] [facility] [place], [place] [address] [id number] I MR#: [id number] Acc #: [id number] NAME: GENIE MONTERROSO : 1980 SEX: M STUDY DATE/TIME: 09/15/2016 5:01 UNIT: [facility] ROOM: [facility] STUDY DESCRIPTION: CR Chest Single View Portable Attending Physician: Nam Chand M.D. Referring Physician: Danielito Nelson M.D. Ordering Physician: Shaun Noe M.D. Primary Care Physician: Danielito Nelson M.D. MEDICAL IMAGING REPORT This report is preliminary unless electronic signature is present EXAM AP portable chest 09/15/2016 HISTORY Respiratory failure. Pneumonia. History of HIV and Burkitt lymphoma. TECHNIQUE AP portable chest x-ray. FINDINGS There has been significant, progressive worsening of multinodular infiltrate throughout the right lung since yesterday. There is persistent dense airspace consolidation throughout much of the left lung, there is evidence of likely cavitation within the left upper lung. Endotracheal tube and left IJ central line remain in good position. Feeding tube below the diaphragm. IMPRESSION 1. Significant worsening of diffuse pulmonary infiltrates as noted above. Probable cavitation in the left upper lung. 2. Support devices in good position. STAT * RESULT Dictated by... Eugene Osborn M.D. THIS IS AN ELECTRONICALLY VERIFIED REPORT Eugene Osborn M.D. at 09/15/2016 6:01 AM CARLITO/ronnell STS. [facility] A Service of [facility] & [facility] RADIOLOGY TEXT RESULTS PATIENT: GENIE MONTERROSO LOCATION: [facility]21 : [birth year] UNIT #: [id number] AGE: [address]: Nam Chand MD SEX: M ORDER DR: TD: 09/15/2016 05:55 JOB #: [id number] MEDICAL IMAGING REPORT Page 1 of 1 COPY
--- NOTE | ~2016-09-13 | EKG ---
PATIENT: GENIE MONTERROSO UNIT #: [id number] Ventricular Rate: 152 BPM Atrial Rate: 152 BPM P-R Interval: 134 ms QRS Duration: 88 ms Q-T Interval: 246 ms QTC Calculation(Bezet): 391 ms P Lowell: 87 degrees Calculated R Lowell: 89 degrees Calculated T Lowell: 87 degrees Diagnosis Line: Sinus tachycardia Cannot rule out aflutter Diagnosis Line: Nonspecific T wave abnormality Diagnosis Line: Abnormal ECG Diagnosis Line: When compared with ECG of 10-OCT-2015 20:31, Diagnosis Line: Vent. rate has increased BY 61 BPM Diagnosis Line: Nonspecific T wave abnormality now evident in Diagnosis Line: Inferior leads Diagnosis Line: Nonspecific T wave abnormality now evident in Diagnosis Line: Lateral leads Diagnosis Line: Confirmed by KIMBERLYN MOSER MD ([id number]) on 09/15/2016 Diagnosis Line: 9:31:59 AM INTERPRETING MD: EHSAN CUEVAS
--- NOTE | ~2016-09-13 | CO ---
Unit #: [id number] #: [id number] Patient: GENIE MONTERROSO [id number] [address] [place], [place] [address] [id number] MR#: [id number] NAME: GENIE MONTERROSO ROOM: [facility] Age: 36 Sex: M Admission Date: 09/13/2016 : 1980 Attending Physician: Nam Chand M.D. Primary Care Physician: Danielito Nelson M.D. Requesting Physician: Danielito Nelson M.D. Consultation Date: 09/14/2016 CONSULTATION REPORT CHIEF COMPLAINT Pneumonia. REASON FOR CONSULTATION Critical care management. HISTORY OF PRESENT ILLNESS The patient is a 36-year-old male with a past medical history of Burkitt lymphoma, HIV, admitted for pneumonia. He came in with the complaint of cough, shortness of breath and increasing sputum production. He was found to have been in respiratory failure. I am seeing the patient at the bedside. He is currently intubated and sedated. PAST MEDICAL HISTORY 1. HIV. 2. Cavitary pneumonia. 3. History of Burkitt lymphoma. SOCIAL HISTORY Quit smoking last year. Does not drink alcohol. Lives with his partner. FAMILY HISTORY Crohn disease. ALLERGIES Penicillin. CURRENT MEDICATIONS As per MAR. Has been reviewed. REVIEW OF SYSTEMS Unobtainable. PHYSICAL EXAMINATION VITALS: Temperature 97, pulse 58, respiratory rate 16, blood pressure 110/70. LUNGS: Bilateral air entry. Bilateral mild rhonchi. HEART: S1 plus S2. ABDOMEN: Nontender and soft. Bowel sounds positive. EXTREMITIES: No edema. SKIN: No rashes. No ulcers. LYMPH: No lymphadenopathy. NEUROLOGIC: Sedated, intubated. Unit #: [id number] #: [id number] Patient: GENIE MONTERROSO DIAGNOSTIC STUDIES IMAGING: Reviewed. LABORATORY: Reviewed. CARDIOVASCULAR: ASSESSMENT 1. Acute hypoxic hypercapnic respiratory failure. 2. Pneumonia. 3. Rhabdomyolysis. 4. Hypovolemic hyponatremia. 5. HIV. 6. Status post left lobectomy. 7. History of sinus tachycardia. 8. History of Burkitt lymphoma. 9. Neutropic thrombocytopenia. PLAN Continue ventilator support. Broad spectrum IV antibiotics. Bronchoscopy. Infectious disease consultation. IV steroids. GI and DVT prophylaxis. Follow cultures. The patient will be closely monitored. Total critical care time was 75 minutes in direct critical care of this patient. Dictated by... Grace Delaney/barbara TD: 09/14/2016 10:37 JOB #: [id number] CONSULTATION REPORT Page 1 of 1 X Shaun Noe MD X CONSULTATION REPORT
--- NOTE | ~2016-09-13 | CR72 ---
[facility] A Service of [facility] RADIOLOGY TEXT RESULTS PATIENT: GENIE MONTERROSO LOCATION: [address] : [birth year] UNIT #: [id number] AGE: [address]: Julio Thomson MD SEX: M ORDER DR: [id number] [facility] [address]. [place], [place] [address] [id number] MR#: [id number] #: [id number] NAME: GENIE MONTERROSO : 1980 SEX: M STUDY DATE/TIME: 09/21/2016 5:26 UNIT: [facility] ROOM: [facility] STUDY DESCRIPTION: CR Chest Single View Portable Attending Physician: Julio Thomson M.D. Referring Physician: Danielito Nelson M.D. Ordering Physician: Shaun Noe M.D. Primary Care Physician: Danielito Nelson M.D. MEDICAL IMAGING REPORT This report is preliminary unless electronic signature is present EXAM Portable chest x-ray, 09/21/2016. HISTORY Respiratory failure, pneumonia. TECHNIQUE AP radiograph of the chest is presented. COMPARISON 09/20/2016 FINDINGS Endotracheal tube, visualized portion of enteric tube, left internal jugular central venous catheter, unchanged. Heart normal in size. Lungs moderately well inflated. Patchy and linear densities right lung base, stable to marginally improved and probably components of atelectasis and mild pneumonitis. Remainder of right lung clear. No pleural effusion or pneumothorax. Cavitary lesion left upper lobe stable. Given patient history, probably of an infectious or inflammatory nature. Please see prior plain radiographs and CT examinations. There is an ill-defined area of airspace disease in the left lower lung zone which is more conspicuous on today's examination than on prior study with an area of subtle and questionable central lucency which may represent a developing new area of cavitary disease. This could best be further evaluated with CT if it would assist in management at this time. No left pleural effusion or pneumothorax. IMPRESSION 1. Please see the complete dictation above for full details. Cavitary abnormality in the left upper lobe unchanged. Given patient's history on prior studies, probably of an infectious or inflammatory STS. [facility] A Service of [facility] RADIOLOGY TEXT RESULTS PATIENT: GENIE MONTERROSO LOCATION: CIC3 CICCU3-21 : [birth year] UNIT #: [id number] AGE: [address]: Julio Thomson MD SEX: M ORDER DR: etiology. There is an area of increasing ill-defined density measuring approximately 3.7 cm projecting over the left lower lung zone, probably in the left lower lobe. Questionable central air density raising possibility of developing cavitation. This is concerning for an area of cavitary infectious or inflammatory change and could best be further characterized with repeat CT examination if it would assist in management at this time. No left pleural effusion or pneumothorax. 2. Right lung shows continued but improved patchy and linear densities in the lower lung zone. No new areas of abnormality in the right lung. 3. Supportive lines and tubes unchanged in visualized extent. Cardiomediastinal contours stable. Surgical clips left hilar region unchanged. Dictated by... Jan Aragon M.D. THIS IS AN ELECTRONICALLY VERIFIED REPORT Jan Aragon M.D. at 09/22/2016 5:05 PM CHEL/muna TD: 09/21/2016 10:12 JOB #: [id number] MEDICAL IMAGING REPORT Page 1 of 1 COPY
[2016-09-13 18:06] LABS: ARTERIAL BLD GAS O2 SATURATION 94.1 % (90.0-100.0); ARTERIAL BLOOD GAS CARBOXY HB 0.9 %sat (0.0-9.0); ARTERIAL BLOOD GAS HCO3 25.8 mmol/L; ARTERIAL BLOOD GAS MET HB 0.7 %sat (0.0-2.0); ARTERIAL BLOOD GAS pH 7.477 (7.350-7.450)
[2016-09-13 18:07] LABS: ARTERIAL BLOOD GAS ALLEN TEST NORMAL; ARTERIAL BLOOD GAS ART SITE RIGHT RADIAL; ARTERIAL BLOOD GAS DELIVERY NASAL CANNULA; ARTERIAL DRAW? YES
[2016-09-13 18:16] LABS: POC - CKMB 25.5 ng/mL (0.0-7.9); POC - TROPONIN <0.05 ng/mL (<=0.05)
[2016-09-13 18:31] LABS: PARTIAL THROMBOPLASTIN TIME 35.5 SECONDS (23.5-31.3); PROTHROMBIN TIME (PATIENT) 10.3 SECONDS (9.6-11.5)
[2016-09-13 18:48] LABS: ALBUMIN SERUM 3.2 g/dL (3.5-5.0); ALKALINE PHOSPHATASE 29 U/L (32-92); ALT (SGPT) 144 U/L (10-40); BILIRUBIN, DIRECT 1.6 mg/dL (0.0-0.2); BILIRUBIN,INDIRECT 1.7 mg/dL (0.0-0.9); BILIRUBIN,TOTAL 3.3 mg/dL (0.2-2.0); BLOOD UREA NITROGEN 32 mg/dL (9-23); CALCIUM SERUM 8.5 mg/dL (8.4-10.2); CARBON DIOXIDE 26 mmol/L (22-31); CHLORIDE 86 mmol/L (100-111); GLOM FILT RATE Estimated ABOVE60 mL/min (>60); GLUCOSE FASTING 180 mg/dL (70-110); LACTIC ACID DEHYDROGENASE 979 U/L (91-180); POTASSIUM 3.4 mmol/L (3.5-5.1); PROTEIN TOTAL SERUM 7.6 g/dL (6.0-8.3); SODIUM 126 mmol/L (135-145)
[2016-09-13 18:59] LABS: AST (SGOT) 360 U/L (10-42)
[2016-09-13 19:04] LABS: BASOPHIL% 0.3 % (0-2.5); EOSINOPHIL% 0.1 % (0.0-7.0); HEMATOCRIT 41.8 % (38.0-50.0); HEMOGLOBIN 14.7 gm/dL (13.0-16.0); LYMPHOCYTE# 0.1 X10e3 (1.0-3.5); LYMPHOCYTE% 5.6 % (17.0-45.0); MEAN CELL VOLUME 94.9 FL (83-96); MEAN CORPUSCULAR HEMOGLOBIN 33.3 PG (28-34); MEAN CORPUSCULAR HGB CONC 35.1 g/dL (30-36); MEAN PLATELET VOLUME 9.7 FL (6.5-11.5); MONOCYTE% 1.3 % (3.0-12.0); NEUTROPHIL# 2.3 X10e3 (1.5-7.1); NEUTROPHIL% 92.7 % (40-75); RED CELL DISTRIBUTION WIDTH 12.5 % (11.0-15.5); WHITE BLOOD COUNT 2.5 X10e3 (4.0-10.5)
[2016-09-13 19:33] LABS: DIFF IND YES; PLATELET COUNT 45 X10e3 (140-420); PLATELET ESTIMATE DECREASED (NORMAL)
[~2016-09-13 19:53] MED LIST: BENZONATATE PO; CHLORHEXIDINE118 M1 TOP; CLINDAMYCIN HC300 MG PO; COMBIVENT U/D3 M2 INH; CRESEMBA186 MG PO; INTELENCE200 MG PO; ISENTRESS400 MG PO; LEVAQUIN750 MG PO; METOPROLOL TAR25 MG PO; ROXICODONE5 MG PO; SELZENTRY300 MG PO; VFEND50 MG PO
[2016-09-13 21:47] LABS: URINE SOURCE CLEAN CATCH
[2016-09-13 21:59] LABS: URINE APPEARANCE CLEAR; URINE BLOOD 3+ (NEG); URINE COLOR DK YELLOW; URINE GLUCOSE NEG (NEG); URINE KETONE NEG (NEG); URINE LEUKOCYTE ESTERASE TRACE (NEG); URINE NITRATE NEG (NEG); URINE PROTEIN 3+ (NEG); URINE SPECIFIC GRAVITY 1.027 (1.003-1.035); URINE UROBILINOGEN 0.2 MG/DL (NEG)
[2016-09-13 22:02] LABS: URINE BACTERIA AUWI NEG (NEGATIVE); URINE SQUAMOUS EPITHELIAL CELL NONE SEEN /[HPF]
[2016-09-13 22:07] LABS: CULTURE INDICATED? NO
[2016-09-13 22:09] LABS: URINE BILIRUBIN POS (NEG)
[2016-09-14 02:33] LABS: ARTERIAL BLD GAS O2 SATURATION 95.5 % (90.0-100.0); ARTERIAL BLOOD GAS CARBOXY HB 0.6 %sat (0.0-9.0); ARTERIAL BLOOD GAS MET HB 0.6 %sat (0.0-2.0); ARTERIAL BLOOD GAS PCO2 45.8 mmHg (35.0-45.0); ARTERIAL BLOOD GAS PO2 88.4 mmHg (80.0-100); ARTERIAL BLOOD GAS pH 7.345 (7.350-7.450)
[2016-09-14 02:36] LABS: ARTERIAL BLOOD GAS ALLEN TEST NORMAL; ARTERIAL BLOOD GAS ART SITE RIGHT RADIAL; ARTERIAL DRAW? YES
[2016-09-14 02:37] LABS: ARTERIAL BLOOD GAS DELIVERY OXYMIZER
[2016-09-14 04:16] LABS: BASOPHIL% 0.1 % (0-2.5); EOSINOPHIL% 0.1 % (0.0-7.0); HEMATOCRIT 38.6 % (38.0-50.0); HEMOGLOBIN 13.4 gm/dL (13.0-16.0); LYMPHOCYTE# 0.2 X10e3 (1.0-3.5); LYMPHOCYTE% 10.2 % (17.0-45.0); MEAN CELL VOLUME 96.1 FL (83-96); MEAN CORPUSCULAR HEMOGLOBIN 33.4 PG (28-34); MEAN CORPUSCULAR HGB CONC 34.7 g/dL (30-36); MEAN PLATELET VOLUME 10.8 FL (6.5-11.5); MONOCYTE% 0.2 % (3.0-12.0); NEUTROPHIL# 2.1 X10e3 (1.5-7.1); NEUTROPHIL% 89.4 % (40-75); RED BLOOD COUNT 4.01 X10e (3.90-5.60); RED CELL DISTRIBUTION WIDTH 12.6 % (11.0-15.5); WHITE BLOOD COUNT 2.3 X10e3 (4.0-10.5)
[2016-09-14 04:19] LABS: DIFF IND NO; PLATELET COUNT 40 X10e3 (140-420)
[2016-09-14 04:29] LABS: PARTIAL THROMBOPLASTIN TIME 37.9 SECONDS (23.5-31.3); PROTHROMBIN TIME (PATIENT) 10.5 SECONDS (9.6-11.5)
[2016-09-14 05:38] LABS: ALBUMIN SERUM 2.2 g/dL (3.5-5.0); ALKALINE PHOSPHATASE 19 U/L (32-92); ALT (SGPT) 98 U/L (10-40); AST (SGOT) 174 U/L (10-42); BILIRUBIN,TOTAL 2.7 mg/dL (0.2-2.0); BLOOD UREA NITROGEN 21 mg/dL (9-23); CALCIUM SERUM 7.4 mg/dL (8.4-10.2); CARBON DIOXIDE 24 mmol/L (22-31); CHLORIDE 98 mmol/L (100-111); CPK (CREATINE PHOSPHOKINASE) 7926 IU/L (36-174); CREATININE SERUM 0.7 mg/dL (0.6-1.4); GLOM FILT RATE Estimated ABOVE60 mL/min (>60); GLUCOSE FASTING 156 mg/dL (70-110); POTASSIUM 3.2 mmol/L (3.5-5.1); PROTEIN TOTAL SERUM 5.6 g/dL (6.0-8.3); SODIUM 130 mmol/L (135-145)
[2016-09-14 12:11] LABS: ARTERIAL BLD GAS O2 SATURATION 98.4 % (90.0-100.0); ARTERIAL BLOOD GAS CARBOXY HB 0.5 %sat (0.0-9.0); ARTERIAL BLOOD GAS HCO3 26.1 mmol/L; ARTERIAL BLOOD GAS MET HB 1.1 %sat (0.0-2.0); ARTERIAL BLOOD GAS PCO2 45.2 mmHg (35.0-45.0); ARTERIAL BLOOD GAS pH 7.369 (7.350-7.450)
[2016-09-14 12:13] LABS: ARTERIAL BLOOD GAS ART SITE RIGHT RADIAL; ARTERIAL BLOOD GAS DELIVERY VENT; ARTERIAL BLOOD GAS VENT MODE AC; ARTERIAL DRAW? YES
[2016-09-14 17:04] LABS: ARTERIAL BLD GAS O2 SATURATION 81.9 % (90.0-100.0); ARTERIAL BLOOD GAS CARBOXY HB 0.3 %sat (0.0-9.0); ARTERIAL BLOOD GAS HCO3 25.2 mmol/L; ARTERIAL BLOOD GAS pH 7.222 (7.350-7.450)
[2016-09-14 17:05] LABS: ARTERIAL BLOOD GAS DELIVERY VENT; ARTERIAL BLOOD GAS PCO2 61.4 mmHg (35.0-45.0); ARTERIAL BLOOD GAS PO2 54.4 mmHg (80.0-100); ARTERIAL BLOOD GAS VENT MODE PRVC
[2016-09-14 17:09] LABS: BUN/CREATININE RATIO 22.5; CALCIUM SERUM 7.6 mg/dL (8.4-10.2); CREATININE SERUM 0.8 mg/dL (0.6-1.4); GLOM FILT RATE Estimated 113.4 mL/min (>60); POTASSIUM 4.1 mmol/L (3.5-5.1)
[2016-09-14 17:52] LABS: BODY FLUID SOURCE BRONCHIAL LAVAGE
[2016-09-14 17:53] LABS: BODY FLUID APPEARANCE BLOODY
[2016-09-14 18:13] LABS: ARTERIAL BLD GAS O2 SATURATION 95.7 % (90.0-100.0); ARTERIAL BLOOD GAS CARBOXY HB 0.2 %sat (0.0-9.0); ARTERIAL BLOOD GAS HCO3 23.8 mmol/L; ARTERIAL BLOOD GAS MET HB 0.9 %sat (0.0-2.0); ARTERIAL BLOOD GAS pH 7.217 (7.350-7.450)
[2016-09-14 18:32] LABS: ARTERIAL BLOOD GAS ALLEN TEST NORMAL; ARTERIAL BLOOD GAS ART SITE RIGHT RADIAL; ARTERIAL BLOOD GAS DELIVERY VENT; ARTERIAL BLOOD GAS PCO2 58.5 mmHg (35.0-45.0); ARTERIAL DRAW? YES
[2016-09-14 18:33] LABS: ARTERIAL BLOOD GAS VENT MODE PRVC
[2016-09-14 18:40] LABS: %MB 0.1 % (0.0-4.0); MB 4.1 ng/ml
[2016-09-14 19:47] LABS: ARTERIAL BLD GAS O2 SATURATION 95.9 % (90.0-100.0); ARTERIAL BLOOD GAS CARBOXY HB 0.1 %sat (0.0-9.0); ARTERIAL BLOOD GAS HCO3 23.5 mmol/L; ARTERIAL BLOOD GAS MET HB 0.9 %sat (0.0-2.0)
[2016-09-14 20:14] LABS: ARTERIAL BLOOD GAS PCO2 63.4 mmHg (35.0-45.0); ARTERIAL BLOOD GAS pH 7.178 (7.350-7.450)
[2016-09-14 20:15] LABS: ARTERIAL BLOOD GAS ALLEN TEST NORMAL; ARTERIAL BLOOD GAS ART SITE RIGHT RADIAL; ARTERIAL BLOOD GAS DELIVERY VENT; ARTERIAL BLOOD GAS VENT MODE PRVC
[2016-09-14 20:16] LABS: ARTERIAL DRAW? YES
[2016-09-14 20:44] LABS: ARTERIAL BLOOD GAS CARBOXY HB 0.1 %sat (0.0-9.0); ARTERIAL BLOOD GAS HCO3 22.6 mmol/L; ARTERIAL BLOOD GAS MET HB 0.8 %sat (0.0-2.0); ARTERIAL BLOOD GAS pH 7.214 (7.350-7.450)
[2016-09-14 21:03] LABS: ARTERIAL BLOOD GAS ALLEN TEST NORMAL; ARTERIAL BLOOD GAS ART SITE RIGHT RADIAL; ARTERIAL BLOOD GAS DELIVERY VENT; ARTERIAL BLOOD GAS VENT MODE AC; ARTERIAL DRAW? YES
[2016-09-15 00:55] LABS: %MB 0.2 % (0.0-4.0); MB 3.9 ng/ml
[2016-09-15 04:45] LABS: ARTERIAL BLD GAS O2 SATURATION 96.1 % (90.0-100.0); ARTERIAL BLOOD GAS CARBOXY HB 0.4 %sat (0.0-9.0); ARTERIAL BLOOD GAS HCO3 26.4 mmol/L; ARTERIAL BLOOD GAS MET HB 0.7 %sat (0.0-2.0); ARTERIAL BLOOD GAS PCO2 41.6 mmHg (35.0-45.0); ARTERIAL BLOOD GAS PO2 90.6 mmHg (80.0-100); ARTERIAL BLOOD GAS pH 7.411 (7.350-7.450)
[2016-09-15 04:55] LABS: ARTERIAL BLOOD GAS ALLEN TEST NORMAL; ARTERIAL BLOOD GAS ART SITE RIGHT RADIAL; ARTERIAL BLOOD GAS DELIVERY VENT; ARTERIAL BLOOD GAS VENT MODE AC; ARTERIAL DRAW? YES
[2016-09-15 06:23] LABS: ALBUMIN SERUM 1.4 g/dL (3.5-5.0); BILIRUBIN,TOTAL 1.2 mg/dL (0.2-2.0); BUN/CREATININE RATIO 16.66; CALCIUM SERUM 6.7 mg/dL (8.4-10.2); CREATININE SERUM 1.2 mg/dL (0.6-1.4); GLOM FILT RATE Estimated 76.3 mL/min (>60); MAGNESIUM 2.3 mg/dL (1.6-3.0); POTASSIUM 3.5 mmol/L (3.5-5.1)
[2016-09-15 06:29] LABS: CRYPTO AG CSF/SERUM NEG (NEG); CRYPTO AG SOURCE SERUM
[2016-09-15 06:48] LABS: %MB 0.3 % (0.0-4.0); MB 3.6 ng/ml
[2016-09-15 09:15] LABS: ARTERIAL BLD GAS O2 SATURATION 96.7 % (90.0-100.0); ARTERIAL BLOOD GAS CARBOXY HB 0.1 %sat (0.0-9.0); ARTERIAL BLOOD GAS HCO3 19.8 mmol/L; ARTERIAL BLOOD GAS MET HB 0.9 %sat (0.0-2.0); ARTERIAL BLOOD GAS PCO2 47.2 mmHg (35.0-45.0); ARTERIAL BLOOD GAS pH 7.232 (7.350-7.450)
[2016-09-15 09:16] LABS: ARTERIAL BLOOD GAS ALLEN TEST NORMAL; ARTERIAL BLOOD GAS ART SITE RIGHT RADIAL; ARTERIAL BLOOD GAS DELIVERY VENT; ARTERIAL BLOOD GAS VENT MODE A/C; ARTERIAL DRAW? YES
[2016-09-15 09:21] LABS: BASOPHIL% 0.1 % (0-2.5); EOSINOPHIL% 0.1 % (0.0-7.0); HEMATOCRIT 31.3 % (38.0-50.0); LYMPHOCYTE# 0.1 X10e3 (1.0-3.5); MEAN CORPUSCULAR HEMOGLOBIN 33.4 PG (28-34); MEAN CORPUSCULAR HGB CONC 33.5 g/dL (30-36); MEAN PLATELET VOLUME 11.1 FL (6.5-11.5); MONOCYTE# 0.1 X10e3 (0-1.0); MONOCYTE% 1.9 % (3.0-12.0); NEUTROPHIL# 2.9 X10e3 (1.5-7.1); NEUTROPHIL% 95.9 % (40-75); RED BLOOD COUNT 3.14 X10e (3.90-5.60); RED CELL DISTRIBUTION WIDTH 13.3 % (11.0-15.5); WHITE BLOOD COUNT 3.1 X10e3 (4.0-10.5)
[2016-09-15 09:22] LABS: MEAN CELL VOLUME 99.8 FL (83-96)
[2016-09-15 09:23] LABS: DIFF IND NO; HEMOGLOBIN 10.5 gm/dL (13.0-16.0); PLATELET COUNT 30 X10e3 (140-420)
[2016-09-15 14:17] LABS: ARTERIAL BLD GAS O2 SATURATION 93.4 % (90.0-100.0); ARTERIAL BLOOD GAS CARBOXY HB 0.3 %sat (0.0-9.0); ARTERIAL BLOOD GAS HCO3 20.5 mmol/L; ARTERIAL BLOOD GAS MET HB 0.9 %sat (0.0-2.0); ARTERIAL BLOOD GAS PCO2 47.6 mmHg (35.0-45.0); ARTERIAL BLOOD GAS pH 7.242 (7.350-7.450)
[2016-09-15 14:18] LABS: ARTERIAL BLOOD GAS ALLEN TEST NORMAL; ARTERIAL BLOOD GAS ART SITE RIGHT RADIAL; ARTERIAL BLOOD GAS DELIVERY VENT; ARTERIAL BLOOD GAS PO2 77.3 mmHg (80.0-100); ARTERIAL BLOOD GAS VENT MODE A/C; ARTERIAL DRAW? YES
[2016-09-15 14:52] LABS: ALBUMIN SERUM 1.6 g/dL (3.5-5.0); BILIRUBIN,TOTAL 1.1 mg/dL (0.2-2.0); BUN/CREATININE RATIO 17.69; CALCIUM SERUM 6.9 mg/dL (8.4-10.2); CREATININE SERUM 1.3 mg/dL (0.6-1.4); GLOM FILT RATE Estimated 69.2 mL/min (>60); POTASSIUM 3.7 mmol/L (3.5-5.1); PROTEIN TOTAL SERUM 4.8 g/dL (6.0-8.3)
[2016-09-15 16:40] LABS: ARTERIAL BLD GAS O2 SATURATION 86.7 % (90.0-100.0); ARTERIAL BLOOD GAS CARBOXY HB 0.3 %sat (0.0-9.0); ARTERIAL BLOOD GAS HCO3 21.9 mmol/L; ARTERIAL BLOOD GAS MET HB 0.1 %sat (0.0-2.0); ARTERIAL BLOOD GAS pH 7.203 (7.350-7.450)
[2016-09-15 16:41] LABS: ARTERIAL BLOOD GAS ALLEN TEST NORMAL; ARTERIAL BLOOD GAS ART SITE RIGHT RADIAL; ARTERIAL BLOOD GAS DELIVERY VENT; ARTERIAL BLOOD GAS PCO2 55.7 mmHg (35.0-45.0); ARTERIAL BLOOD GAS PO2 57.2 mmHg (80.0-100); ARTERIAL BLOOD GAS VENT MODE A/C; ARTERIAL DRAW? YES
[2016-09-15 18:48] LABS: ARTERIAL BLD GAS O2 SATURATION 98.3 % (90.0-100.0); ARTERIAL BLOOD GAS CARBOXY HB 0.2 %sat (0.0-9.0); ARTERIAL BLOOD GAS HCO3 22.2 mmol/L; ARTERIAL BLOOD GAS MET HB 1.1 %sat (0.0-2.0); ARTERIAL BLOOD GAS pH 7.218 (7.350-7.450)
[2016-09-15 18:49] LABS: ARTERIAL BLOOD GAS ART SITE RIGHT BRACHIAL; ARTERIAL BLOOD GAS DELIVERY VENT; ARTERIAL BLOOD GAS PCO2 54.5 mmHg (35.0-45.0); ARTERIAL BLOOD GAS VENT MODE AC; ARTERIAL DRAW? YES
[2016-09-16 04:09] LABS: ARTERIAL BLOOD GAS pH 7.272 (7.350-7.450)
[2016-09-16 04:10] LABS: ARTERIAL BLOOD GAS ART SITE RIGHT BRACHIAL; ARTERIAL BLOOD GAS DELIVERY VENT; ARTERIAL BLOOD GAS VENT MODE AC; ARTERIAL DRAW? YES
[2016-09-16 05:58] LABS: BASOPHIL% 0.2 % (0-2.5); EOSINOPHIL% 0.1 % (0.0-7.0); HEMATOCRIT 29.5 % (38.0-50.0); HEMOGLOBIN 10.1 gm/dL (13.0-16.0); LYMPHOCYTE# 0.1 X10e3 (1.0-3.5); MEAN CELL VOLUME 98.9 FL (83-96); MEAN CORPUSCULAR HEMOGLOBIN 33.8 PG (28-34); MEAN CORPUSCULAR HGB CONC 34.1 g/dL (30-36); MEAN PLATELET VOLUME 10.9 FL (6.5-11.5); MONOCYTE# 0.2 X10e3 (0-1.0); MONOCYTE% 2.4 % (3.0-12.0); NEUTROPHIL# 7.1 X10e3 (1.5-7.1); NEUTROPHIL% 95.3 % (40-75); RED BLOOD COUNT 2.98 X10e (3.90-5.60); RED CELL DISTRIBUTION WIDTH 13.7 % (11.0-15.5)
[2016-09-16 06:41] LABS: PLATELET COUNT 62 X10e3 (140-420); WHITE BLOOD COUNT 7.4 X10e3 (4.0-10.5)
[2016-09-16 06:42] LABS: DIFF IND NO
[2016-09-16 06:44] LABS: ALBUMIN SERUM 1.5 g/dL (3.5-5.0); BUN/CREATININE RATIO 22.14; CALCIUM SERUM 8.4 mg/dL (8.4-10.2); CREATININE SERUM 1.4 mg/dL (0.6-1.4); GLOM FILT RATE Estimated 63.3 mL/min (>60); MAGNESIUM 2.5 mg/dL (1.6-3.0); POTASSIUM 3.7 mmol/L (3.5-5.1); PROTEIN TOTAL SERUM 4.4 g/dL (6.0-8.3)
[2016-09-17 03:24] LABS: BASOPHIL% 0.2 % (0-2.5); EOSINOPHIL% 0.1 % (0.0-7.0); HEMATOCRIT 25.2 % (38.0-50.0); HEMOGLOBIN 8.6 gm/dL (13.0-16.0); LYMPHOCYTE# 0.2 X10e3 (1.0-3.5); LYMPHOCYTE% 2.3 % (17.0-45.0); MEAN CELL VOLUME 98.5 FL (83-96); MEAN CORPUSCULAR HEMOGLOBIN 33.6 PG (28-34); MEAN CORPUSCULAR HGB CONC 34.1 g/dL (30-36); MEAN PLATELET VOLUME 10.3 FL (6.5-11.5); MONOCYTE# 0.1 X10e3 (0-1.0); MONOCYTE% 1.9 % (3.0-12.0); NEUTROPHIL# 7.1 X10e3 (1.5-7.1); NEUTROPHIL% 95.5 % (40-75); PLATELET COUNT 61 X10e3 (140-420); RED BLOOD COUNT 2.56 X10e (3.90-5.60); RED CELL DISTRIBUTION WIDTH 13.5 % (11.0-15.5); WHITE BLOOD COUNT 7.4 X10e3 (4.0-10.5)
[2016-09-17 03:28] LABS: DIFF IND NO
[2016-09-17 03:43] LABS: ALBUMIN SERUM 1.6 g/dL (3.5-5.0); GLOM FILT RATE Estimated 95.1 mL/min (>60); POTASSIUM 3.1 mmol/L (3.5-5.1); PROTEIN TOTAL SERUM 4.5 g/dL (6.0-8.3)
[2016-09-17 05:16] LABS: ARTERIAL BLOOD GAS PCO2 41.6 mmHg (35.0-45.0); ARTERIAL BLOOD GAS pH 7.406 (7.350-7.450)
[2016-09-17 05:17] LABS: ARTERIAL BLD GAS O2 SATURATION 97.7 % (90.0-100.0); ARTERIAL BLOOD GAS CARBOXY HB 0.4 %sat (0.0-9.0); ARTERIAL BLOOD GAS HCO3 26.1 mmol/L; ARTERIAL BLOOD GAS MET HB 0.8 %sat (0.0-2.0)
[2016-09-17 05:18] LABS: ARTERIAL BLOOD GAS ALLEN TEST NORMAL; ARTERIAL BLOOD GAS ART SITE RIGHT RADIAL; ARTERIAL BLOOD GAS DELIVERY VENT; ARTERIAL BLOOD GAS VENT MODE AC; ARTERIAL DRAW? YES
[2016-09-17 06:59] LABS: MAGNESIUM 2.2 mg/dL (1.6-3.0)
[2016-09-17 08:16] LABS: ARTERIAL BLD GAS O2 SATURATION 95.4 % (90.0-100.0); ARTERIAL BLOOD GAS CARBOXY HB 0.5 %sat (0.0-9.0); ARTERIAL BLOOD GAS HCO3 25.1 mmol/L; ARTERIAL BLOOD GAS MET HB 0.3 %sat (0.0-2.0); ARTERIAL BLOOD GAS PCO2 39.1 mmHg (35.0-45.0); ARTERIAL BLOOD GAS PO2 76.5 mmHg (80.0-100); ARTERIAL BLOOD GAS pH 7.416 (7.350-7.450)
[2016-09-17 08:17] LABS: ARTERIAL BLOOD GAS ALLEN TEST Y; ARTERIAL BLOOD GAS ART SITE RIGHT RADIAL; ARTERIAL BLOOD GAS DELIVERY VE; ARTERIAL BLOOD GAS VENT MODE AC; ARTERIAL DRAW? YES
[2016-09-17 09:57] LABS: HIV1 LOG COPIES/ML 1.42 (<1.30)
[2016-09-18 04:05] LABS: HEMOGLOBIN 8.8 gm/dL (13.0-16.0); MEAN CELL VOLUME 98.6 FL (83-96); MEAN CORPUSCULAR HEMOGLOBIN 33.5 PG (28-34); MEAN CORPUSCULAR HGB CONC 33.9 g/dL (30-36); MEAN PLATELET VOLUME 10.6 FL (6.5-11.5); RED BLOOD COUNT 2.64 X10e (3.90-5.60); RED CELL DISTRIBUTION WIDTH 13.6 % (11.0-15.5); WHITE BLOOD COUNT 7.6 X10e3 (4.0-10.5)
[2016-09-18 04:20] LABS: ARTERIAL BLD GAS O2 SATURATION 96.6 % (90.0-100.0); ARTERIAL BLOOD GAS ALLEN TEST NORMAL; ARTERIAL BLOOD GAS ART SITE RIGHT RADIAL; ARTERIAL BLOOD GAS CARBOXY HB 0.7 %sat (0.0-9.0); ARTERIAL BLOOD GAS HCO3 29.3 mmol/L; ARTERIAL BLOOD GAS MET HB 0.8 %sat (0.0-2.0); ARTERIAL BLOOD GAS PCO2 40.3 mmHg (35.0-45.0); ARTERIAL BLOOD GAS PO2 78.6 mmHg (80.0-100); ARTERIAL DRAW? YES
[2016-09-18 04:21] LABS: ARTERIAL BLOOD GAS DELIVERY VENT; ARTERIAL BLOOD GAS VENT MODE A/C
[2016-09-18 04:21] LABS: ALBUMIN SERUM 1.8 g/dL (3.5-5.0); BILIRUBIN,TOTAL 0.9 mg/dL (0.2-2.0); BUN/CREATININE RATIO 50.9; CREATININE SERUM 1.1 mg/dL (0.6-1.4); GLOM FILT RATE Estimated 84.7 mL/min (>60); PHOSPHOROUS 3.1 mg/dL (2.5-4.6); PROTEIN TOTAL SERUM 4.9 g/dL (6.0-8.3)
[2016-09-19 04:20] LABS: ARTERIAL BLD GAS O2 SATURATION 93.7 % (90.0-100.0); ARTERIAL BLOOD GAS CARBOXY HB 0.9 %sat (0.0-9.0); ARTERIAL BLOOD GAS HCO3 32.1 mmol/L; ARTERIAL BLOOD GAS MET HB 1.5 %sat (0.0-2.0); ARTERIAL BLOOD GAS PCO2 39.2 mmHg (35.0-45.0); ARTERIAL BLOOD GAS pH 7.522 (7.350-7.450)
[2016-09-19 04:25] LABS: ARTERIAL BLOOD GAS ALLEN TEST NORMAL; ARTERIAL BLOOD GAS ART SITE LEFT RADIAL; ARTERIAL BLOOD GAS DELIVERY VENT; ARTERIAL BLOOD GAS PO2 74.2 mmHg (80.0-100); ARTERIAL BLOOD GAS VENT MODE AC; ARTERIAL DRAW? YES
[2016-09-19 06:36] LABS: BASOPHIL% 0.1 % (0-2.5); EOSINOPHIL% 0.1 % (0.0-7.0); HEMATOCRIT 26.9 % (38.0-50.0); HEMOGLOBIN 9.3 gm/dL (13.0-16.0); LYMPHOCYTE# 0.3 X10e3 (1.0-3.5); LYMPHOCYTE% 3.9 % (17.0-45.0); MEAN CELL VOLUME 98.7 FL (83-96); MEAN CORPUSCULAR HGB CONC 34.4 g/dL (30-36); MEAN PLATELET VOLUME 9.5 FL (6.5-11.5); MONOCYTE# 0.1 X10e3 (0-1.0); MONOCYTE% 1.2 % (3.0-12.0); NEUTROPHIL% 94.7 % (40-75); RED BLOOD COUNT 2.73 X10e (3.90-5.60); WHITE BLOOD COUNT 8.4 X10e3 (4.0-10.5)
[2016-09-19 07:15] LABS: ALBUMIN SERUM 1.9 g/dL (3.5-5.0); BILIRUBIN,TOTAL 0.7 mg/dL (0.2-2.0); BUN/CREATININE RATIO 47.5; CREATININE SERUM 1.2 mg/dL (0.6-1.4); GLOM FILT RATE Estimated 76.3 mL/min (>60); MAGNESIUM 1.9 mg/dL (1.6-3.0); PLATELET COUNT 83 X10e3 (140-420); POTASSIUM 4.1 mmol/L (3.5-5.1)
[2016-09-19 07:16] LABS: DIFF IND NO
[2016-09-19 15:38] LABS: ARTERIAL BLD GAS O2 SATURATION 92.6 % (90.0-100.0); ARTERIAL BLOOD GAS CARBOXY HB 0.9 %sat (0.0-9.0); ARTERIAL BLOOD GAS MET HB 1.4 %sat (0.0-2.0); ARTERIAL BLOOD GAS PCO2 45.3 mmHg (35.0-45.0); ARTERIAL BLOOD GAS pH 7.509 (7.350-7.450)
[2016-09-19 15:41] LABS: ARTERIAL BLOOD GAS PO2 67.6 mmHg (80.0-100)
[2016-09-19 15:42] LABS: ARTERIAL BLOOD GAS ALLEN TEST NORMAL; ARTERIAL BLOOD GAS ART SITE LEFT RADIAL; ARTERIAL BLOOD GAS DELIVERY VENT; ARTERIAL BLOOD GAS VENT MODE A/C; ARTERIAL DRAW? YES
[2016-09-19 16:54] LABS: ARTERIAL BLD GAS O2 SATURATION 93.1 % (90.0-100.0); ARTERIAL BLOOD GAS CARBOXY HB 0.9 %sat (0.0-9.0); ARTERIAL BLOOD GAS MET HB 1.2 %sat (0.0-2.0); ARTERIAL BLOOD GAS PCO2 43.3 mmHg (35.0-45.0); ARTERIAL BLOOD GAS pH 7.529 (7.350-7.450)
[2016-09-19 16:55] LABS: ARTERIAL BLOOD GAS ALLEN TEST NORMAL; ARTERIAL BLOOD GAS ART SITE RIGHT RADIAL; ARTERIAL BLOOD GAS DELIVERY VENT; ARTERIAL BLOOD GAS PO2 68.2 mmHg (80.0-100); ARTERIAL BLOOD GAS VENT MODE A/C; ARTERIAL DRAW? YES
[2016-09-20 04:19] LABS: ARTERIAL BLD GAS O2 SATURATION 97.3 % (90.0-100.0); ARTERIAL BLOOD GAS CARBOXY HB 0.5 %sat (0.0-9.0); ARTERIAL BLOOD GAS HCO3 35.3 mmol/L; ARTERIAL BLOOD GAS MET HB 1.1 %sat (0.0-2.0); ARTERIAL BLOOD GAS PCO2 49.2 mmHg (35.0-45.0); ARTERIAL BLOOD GAS pH 7.464 (7.350-7.450)
[2016-09-20 04:34] LABS: ARTERIAL BLOOD GAS ALLEN TEST NORMAL; ARTERIAL BLOOD GAS ART SITE LEFT RADIAL; ARTERIAL BLOOD GAS DELIVERY VENT; ARTERIAL BLOOD GAS VENT MODE AC; ARTERIAL DRAW? YES
[2016-09-20 05:45] LABS: BASOPHIL% 0.1 % (0-2.5); EOSINOPHIL% 0.2 % (0.0-7.0); HEMATOCRIT 26.9 % (38.0-50.0); HEMOGLOBIN 8.9 gm/dL (13.0-16.0); LYMPHOCYTE# 0.5 X10e3 (1.0-3.5); LYMPHOCYTE% 7.1 % (17.0-45.0); MEAN CORPUSCULAR HEMOGLOBIN 33.3 PG (28-34); MEAN PLATELET VOLUME 10.6 FL (6.5-11.5); MONOCYTE# 0.2 X10e3 (0-1.0); MONOCYTE% 2.4 % (3.0-12.0); NEUTROPHIL# 6.6 X10e3 (1.5-7.1); NEUTROPHIL% 90.2 % (40-75); PLATELET COUNT 89 X10e3 (140-420); RED BLOOD COUNT 2.66 X10e (3.90-5.60); RED CELL DISTRIBUTION WIDTH 13.7 % (11.0-15.5); WHITE BLOOD COUNT 7.4 X10e3 (4.0-10.5)
[2016-09-20 05:49] LABS: DIFF IND NO
[2016-09-20 06:27] LABS: BILIRUBIN,TOTAL 0.5 mg/dL (0.2-2.0); CALCIUM SERUM 7.7 mg/dL (8.4-10.2); GLOM FILT RATE Estimated 95.1 mL/min (>60); POTASSIUM 4.4 mmol/L (3.5-5.1)
[2016-09-20 10:26] LABS: BODY FLUID APPEARANCE CLOUDY; BODY FLUID SOURCE BRONCHIAL LAVAGE
[2016-09-20 19:29] LABS: CD4 % (PNL) 21 % (30-61)
[2016-09-21 04:27] LABS: ARTERIAL BLD GAS O2 SATURATION 96.9 % (90.0-100.0); ARTERIAL BLOOD GAS CARBOXY HB 0.5 %sat (0.0-9.0); ARTERIAL BLOOD GAS MET HB 1.4 %sat (0.0-2.0); ARTERIAL BLOOD GAS pH 7.403 (7.350-7.450)
[2016-09-21 04:33] LABS: ARTERIAL BLOOD GAS ALLEN TEST NORMAL; ARTERIAL BLOOD GAS ART SITE LEFT RADIAL; ARTERIAL BLOOD GAS DELIVERY VENT; ARTERIAL BLOOD GAS PCO2 54.5 mmHg (35.0-45.0); ARTERIAL DRAW? YES
[2016-09-21 04:34] LABS: ARTERIAL BLOOD GAS VENT MODE AC
[2016-09-21 05:19] LABS: BASOPHIL% 0.2 % (0-2.5); EOSINOPHIL% 0.2 % (0.0-7.0); HEMATOCRIT 25.8 % (38.0-50.0); HEMOGLOBIN 8.6 gm/dL (13.0-16.0); LYMPHOCYTE# 0.4 X10e3 (1.0-3.5); LYMPHOCYTE% 5.6 % (17.0-45.0); MEAN CELL VOLUME 101.6 FL (83-96); MEAN CORPUSCULAR HEMOGLOBIN 33.8 PG (28-34); MEAN CORPUSCULAR HGB CONC 33.2 g/dL (30-36); MEAN PLATELET VOLUME 10.6 FL (6.5-11.5); MONOCYTE# 0.1 X10e3 (0-1.0); MONOCYTE% 1.3 % (3.0-12.0); NEUTROPHIL# 6.2 X10e3 (1.5-7.1); NEUTROPHIL% 92.7 % (40-75); PLATELET COUNT 87 X10e3 (140-420); RED BLOOD COUNT 2.54 X10e (3.90-5.60); RED CELL DISTRIBUTION WIDTH 13.6 % (11.0-15.5); WHITE BLOOD COUNT 6.7 X10e3 (4.0-10.5)
[2016-09-21 05:20] LABS: DIFF IND NO
[2016-09-21 06:32] LABS: ALBUMIN SERUM 1.9 g/dL (3.5-5.0); BILIRUBIN,TOTAL 0.3 mg/dL (0.2-2.0); BUN/CREATININE RATIO 45.55; CALCIUM SERUM 7.8 mg/dL (8.4-10.2); CREATININE SERUM 0.9 mg/dL (0.6-1.4); MAGNESIUM 1.9 mg/dL (1.6-3.0); POTASSIUM 4.9 mmol/L (3.5-5.1); PROTEIN TOTAL SERUM 4.9 g/dL (6.0-8.3)
[2016-09-22 04:16] LABS: ARTERIAL BLD GAS O2 SATURATION 97.2 % (90.0-100.0); ARTERIAL BLOOD GAS CARBOXY HB 0.5 %sat (0.0-9.0); ARTERIAL BLOOD GAS HCO3 32.7 mmol/L; ARTERIAL BLOOD GAS MET HB 1.2 %sat (0.0-2.0)
[2016-09-22 04:23] LABS: ARTERIAL BLOOD GAS ALLEN TEST NORMAL; ARTERIAL BLOOD GAS ART SITE LEFT RADIAL; ARTERIAL BLOOD GAS DELIVERY VENT; ARTERIAL BLOOD GAS PCO2 52.9 mmHg (35.0-45.0); ARTERIAL BLOOD GAS VENT MODE AC; ARTERIAL DRAW? YES
[2016-09-22 05:04] LABS: BASOPHIL% 0.1 % (0-2.5); HEMATOCRIT 24.7 % (38.0-50.0); HEMOGLOBIN 8.1 gm/dL (13.0-16.0); LYMPHOCYTE# 0.4 X10e3 (1.0-3.5); LYMPHOCYTE% 5.7 % (17.0-45.0); MEAN CELL VOLUME 102.3 FL (83-96); MEAN CORPUSCULAR HEMOGLOBIN 33.8 PG (28-34); MEAN PLATELET VOLUME 10.8 FL (6.5-11.5); MONOCYTE# 0.1 X10e3 (0-1.0); MONOCYTE% 1.5 % (3.0-12.0); NEUTROPHIL# 6.1 X10e3 (1.5-7.1); NEUTROPHIL% 92.7 % (40-75); PLATELET COUNT 94 X10e3 (140-420); RED BLOOD COUNT 2.41 X10e (3.90-5.60); RED CELL DISTRIBUTION WIDTH 13.5 % (11.0-15.5); WHITE BLOOD COUNT 6.6 X10e3 (4.0-10.5)
[2016-09-22 05:17] LABS: DIFF IND NO
[2016-09-22 05:25] LABS: BILIRUBIN,TOTAL 0.5 mg/dL (0.2-2.0); BUN/CREATININE RATIO 43.33; CALCIUM SERUM 7.6 mg/dL (8.4-10.2); CREATININE SERUM 0.9 mg/dL (0.6-1.4); MAGNESIUM 1.9 mg/dL (1.6-3.0); POTASSIUM 4.8 mmol/L (3.5-5.1); PROTEIN TOTAL SERUM 5.1 g/dL (6.0-8.3)
[2016-09-22 08:58] LABS: ARTERIAL BLD GAS O2 SATURATION 98.5 % (90.0-100.0); ARTERIAL BLOOD GAS ALLEN TEST NORMAL; ARTERIAL BLOOD GAS ART SITE LEFT RADIAL; ARTERIAL BLOOD GAS CARBOXY HB 0.1 %sat (0.0-9.0); ARTERIAL BLOOD GAS HCO3 32.7 mmol/L; ARTERIAL BLOOD GAS MET HB 0.9 %sat (0.0-2.0); ARTERIAL BLOOD GAS VENT MODE CPAP; ARTERIAL DRAW? YES
[2016-09-23 04:35] LABS: ARTERIAL BLD GAS O2 SATURATION 95.9 % (90.0-100.0); ARTERIAL BLOOD GAS MET HB 1.1 %sat (0.0-2.0); ARTERIAL BLOOD GAS PCO2 36.8 mmHg (35.0-45.0); ARTERIAL BLOOD GAS PO2 96.5 mmHg (80.0-100); ARTERIAL BLOOD GAS pH 7.475 (7.350-7.450)
[2016-09-23 04:51] LABS: ARTERIAL BLOOD GAS ALLEN TEST NORMAL; ARTERIAL BLOOD GAS ART SITE RIGHT RADIAL; ARTERIAL DRAW? YES
[2016-09-23 04:52] LABS: ARTERIAL BLOOD GAS DELIVERY NASAL CANNULA
[2016-09-23 05:53] LABS: BASOPHIL% 0.1 % (0-2.5); DIFF IND NO; HEMATOCRIT 27.8 % (38.0-50.0); HEMOGLOBIN 9.2 gm/dL (13.0-16.0); LYMPHOCYTE# 0.5 X10e3 (1.0-3.5); LYMPHOCYTE% 7.8 % (17.0-45.0); MEAN CELL VOLUME 100.7 FL (83-96); MEAN CORPUSCULAR HEMOGLOBIN 33.3 PG (28-34); MEAN CORPUSCULAR HGB CONC 33.1 g/dL (30-36); MEAN PLATELET VOLUME 11.1 FL (6.5-11.5); MONOCYTE# 0.2 X10e3 (0-1.0); MONOCYTE% 3.4 % (3.0-12.0); NEUTROPHIL# 5.2 X10e3 (1.5-7.1); NEUTROPHIL% 88.7 % (40-75); PLATELET COUNT 112 X10e3 (140-420); RED BLOOD COUNT 2.76 X10e (3.90-5.60); RED CELL DISTRIBUTION WIDTH 13.2 % (11.0-15.5); WHITE BLOOD COUNT 5.9 X10e3 (4.0-10.5)
[2016-09-23 06:49] LABS: ALBUMIN SERUM 2.1 g/dL (3.5-5.0); BILIRUBIN,TOTAL 0.9 mg/dL (0.2-2.0); BUN/CREATININE RATIO 35.55; CALCIUM SERUM 7.8 mg/dL (8.4-10.2); CREATININE SERUM 0.9 mg/dL (0.6-1.4); MAGNESIUM 1.7 mg/dL (1.6-3.0)
[2016-09-24 06:44] LABS: HEMOGLOBIN 9.4 gm/dL (13.0-16.0); MEAN CELL VOLUME 99.8 FL (83-96); MEAN CORPUSCULAR HEMOGLOBIN 33.6 PG (28-34); MEAN CORPUSCULAR HGB CONC 33.6 g/dL (30-36); MEAN PLATELET VOLUME 11.1 FL (6.5-11.5); RED BLOOD COUNT 2.8 X10e (3.90-5.60); RED CELL DISTRIBUTION WIDTH 12.7 % (11.0-15.5); WHITE BLOOD COUNT 4.9 X10e3 (4.0-10.5)
[2016-09-24 07:16] LABS: ALBUMIN SERUM 2.3 g/dL (3.5-5.0); BILIRUBIN,TOTAL 0.9 mg/dL (0.2-2.0); BUN/CREATININE RATIO 45.71; CALCIUM SERUM 8.3 mg/dL (8.4-10.2); CREATININE SERUM 0.7 mg/dL (0.6-1.4); GLOM FILT RATE Estimated 119.8 mL/min (>60); MAGNESIUM 1.7 mg/dL (1.6-3.0); POTASSIUM 4.3 mmol/L (3.5-5.1); PROTEIN TOTAL SERUM 5.3 g/dL (6.0-8.3)
[2016-09-25 06:28] LABS: MAGNESIUM 2.1 mg/dL (1.6-3.0); POTASSIUM 4.1 mmol/L (3.5-5.1)
[2016-09-25 14:15] LABS: ASPERGILLUS FLAVUS Negative (Negative); ASPERGILLUS FUMIGATUS Negative (Negative); ASPERGILLUS NIGER Negative (Negative); BLASTOMYCES ANTIBODY Negative (Negative); COCCIDIODES ANTIBODY Negative (Negative); CRYPTOCOCCAL AB <1:2 (()); CRYPTOCOCCAL AG SCREEN SOURCE Serum (()); CRYPTOCOCCAL SCREEN Not Detected (Not Detected); HISTOPLASMA AB Negative (Negative)
[2016-09-26 02:07] LABS: HISTO AG URINE SPECIMEN Urine (())
[2016-09-26 08:07] LABS: HEMATOCRIT 27.4 % (38.0-50.0); HEMOGLOBIN 9.1 gm/dL (13.0-16.0); MEAN CELL VOLUME 100.3 FL (83-96); MEAN CORPUSCULAR HEMOGLOBIN 33.1 PG (28-34); MEAN PLATELET VOLUME 10.5 FL (6.5-11.5); RED BLOOD COUNT 2.74 X10e (3.90-5.60); RED CELL DISTRIBUTION WIDTH 12.9 % (11.0-15.5)
[2016-09-26 08:40] LABS: CALCIUM SERUM 8.3 mg/dL (8.4-10.2); CREATININE SERUM 0.7 mg/dL (0.6-1.4); GLOM FILT RATE Estimated 119.8 mL/min (>60); POTASSIUM 3.6 mmol/L (3.5-5.1)
[2016-09-27 07:28] LABS: HEMATOCRIT 26.5 % (38.0-50.0); HEMOGLOBIN 8.9 gm/dL (13.0-16.0); MEAN CELL VOLUME 100.6 FL (83-96); MEAN CORPUSCULAR HEMOGLOBIN 33.7 PG (28-34); MEAN CORPUSCULAR HGB CONC 33.5 g/dL (30-36); MEAN PLATELET VOLUME 10.6 FL (6.5-11.5); RED BLOOD COUNT 2.63 X10e (3.90-5.60); RED CELL DISTRIBUTION WIDTH 12.7 % (11.0-15.5); WHITE BLOOD COUNT 4.9 X10e3 (4.0-10.5)
[2016-09-27 08:00] LABS: BUN/CREATININE RATIO 32.22; CALCIUM SERUM 8.5 mg/dL (8.4-10.2); CREATININE SERUM 0.9 mg/dL (0.6-1.4); MAGNESIUM 1.9 mg/dL (1.6-3.0); POTASSIUM 4.2 mmol/L (3.5-5.1)
[2016-09-27] MEDS ORDERED: ISENTRESS400 MG PO (12:54)
[2016-09-27] MEDS ORDERED: INTELENCE200 MG PO (12:55)
[2016-09-27] MEDS ORDERED: SELZENTRY300 MG PO (12:55)
[2016-09-27] MEDS ORDERED: ELIQUIS5 MG PO ×2 (17:19→17:21)
[2016-09-27] MEDS ORDERED: ALBUTEROL17 GM INH (17:22)
[2016-09-27] MEDS ORDERED: DIGESTIVE PROB250 MG PO (17:23)
[2016-09-27] MEDS ORDERED: ZITHROMAX600 MG PO (17:24)
[2016-09-27] MEDS ORDERED: LISINOPRIL10 MG PO (17:25)
[2016-09-27] MEDS ORDERED: COREG PO (17:26)
[2016-09-27] MEDS ORDERED: BACTRIM 400-801 EACH PO (17:27)
[2016-09-27] MEDS ORDERED: CEFTRIAXONE2 GM IM/IV (17:28)
== END 2016-09-27 18:12 | disposition home health service (06) | DRG 969 ==
LOC: CED 19:53 → CEDOF 21:00 → CICCU3 23:32 → C3A PCU 09-23 20:28
PROVIDERS: Emergency Medicine; Internal Medicine; Internal Medicine Nephrology; Nurse Practitioner; Nurse Practitioner Family; Physician Assistant Medical
PROC: 5A1955Z Respiratory Ventilation, Greater than 96 Consecutive Hours (ICD-10-PCS; 2016-09-14)
PROC: 0BH17EZ Insertion of Endotracheal Airway into Trachea, Via Natural or Artificial Opening (ICD-10-PCS; 2016-09-14)
PROC: 0B9B8ZX Drainage of Left Lower Lobe Bronchus, Via Natural or Artificial Opening Endoscopic, Diagnostic (ICD-10-PCS; 2016-09-14)
PROC: B246YZZ Ultrasonography of Right and Left Heart using Other Contrast (ICD-10-PCS; 2016-09-14)
PROC: 0DH67UZ Insertion of Feeding Device into Stomach, Via Natural or Artificial Opening (ICD-10-PCS; 2016-09-14)
PROC: 05HM33Z Insertion of Infusion Device into Right Internal Jugular Vein, Percutaneous Approach (ICD-10-PCS; 2016-09-14)
PROC: 0B9M8ZZ Drainage of Bilateral Lungs, Via Natural or Artificial Opening Endoscopic (ICD-10-PCS; 2016-09-14 12:00)
PROC: B246ZZ4 Ultrasonography of Right and Left Heart, Transesophageal (ICD-10-PCS; principal; 2016-09-19)
PROC: 02HV33Z Insertion of Infusion Device into Superior Vena Cava, Percutaneous Approach (ICD-10-PCS; 2016-09-27)
PROC: B518YZA Fluoroscopy of Superior Vena Cava using Other Contrast, Guidance (ICD-10-PCS; 2016-09-27)
PROC: B548ZZA Ultrasonography of Superior Vena Cava, Guidance (ICD-10-PCS; 2016-09-27)
DX: A41.02 Sepsis due to Methicillin resistant Staphylococcus aureus (principal); B20 Human immunodeficiency virus [HIV] disease; R65.21 Severe sepsis with septic shock; J96.01 Acute respiratory failure with hypoxia; N17.0 Acute kidney failure with tubular necrosis; E43 Unspecified severe protein-calorie malnutrition; I50.21 Acute systolic (congestive) heart failure; E87.4 Mixed disorder of acid-base balance; J15.211 Pneumonia due to Methicillin susceptible Staphylococcus aureus; M62.82 Rhabdomyolysis; J44.1 Chronic obstructive pulmonary disease with (acute) exacerbation; E87.0 Hyperosmolality and hypernatremia; I82.C13 Acute embolism and thrombosis of internal jugular vein, bilateral; I82.B11 Acute embolism and thrombosis of right subclavian vein; I82.611 Acute embolism and thrombosis of superficial veins of right upper extremity; Z85.72 Personal history of non-Hodgkin lymphomas; Z87.891 Personal history of nicotine dependence; Z88.0 Allergy status to penicillin; D64.9 Anemia, unspecified; D69.6 Thrombocytopenia, unspecified; D72.819 Decreased white blood cell count, unspecified; E83.51 Hypocalcemia; I95.9 Hypotension, unspecified
CPT/HCPCS: 36415; 36600; 71010; 71250; 74000; 74176; 76937; 77001; 80048; 80053; 80076; 80202; 81003; 82308; 82330; 82436; 82550; 82553; 82570; 82803; 83605; 83615; 83735; 83880; 84100; 84132; 84300; 84443; 84484; 85025; 85027; 85610; 85730; 86360; 86361; 86606; 86612; 86631; 86698; 87040; 87070; 87077; 87102; 87106; 87116; 87186; 87205; 87206; 87252; 87254; 87278; 87305; 87385; 87493; 87536; 87899; 88108; 88305; 88312; 89051; 89190; 92526; 92610; 93005; 93306; 93312; 93970; 94002; 94003; 94010; 94640; 94760; 96361; 96365; 96375; 97110; 97116; 97163; 97167; 97530; 97535; 99285; C1751; C9113; G8978-GP; G8979-GP; G8987-GO; G8988-GO; G8996-GN; G8997-GN; G8998-GN; J0171; J0330; J0456; J0610; J0692; J0696; J1642; J1652; J1940; J1956; J2250; J2270; J2370; J2405; J2765; J2920; J2930; J3010; J3370; J3465; J3475; J3490